=== PATIENT | female | born 1945 | race Caucasian/White ===

== ENCOUNTER 2021-02-18 14:26 | Inpatient (IN) ==
[2021-02-18] MEDS ORDERED: ALBUT/IPRATROP 3MG/0.5MG NEB 3 ML VIAL NEB STA ×2 (15:00→17:26)
[2021-02-18] MEDS ORDERED: dexAMETHasone**PF** 10 MG/ML VIAL IV ONE (15:00)
--- NOTE | 2021-02-18 15:13 | Emergency Department Note ---
History of Present Illness General Chief complaint: Shortness of Breath/Dyspnea Stated complaint: COUGHING,SOB,COVID POSITIVE 11 DAYS AGO Time Seen by Provider: 02/18/21 14:47 Source: patient Mode of arrival: ambulatory Limitations: no limitations History of Present Illness Provider complaint: Covid positive, not feeling better Onset (ago): week(s) 2 Severity: mild Relieved By: + none Exacerbated By: + movement Associated symptoms: + cough, + fever/chills, + headaches, + loss of appetite, + malaise, + shortness of breath and + weakness; no nausea/vomiting Treatments prior to arrival: none This is a 75-year-old female presents emergency department complaining of pos itive coronavirus and worsening symptoms. Patient states she first tested positive for COVID 11 days ago, however felt some symptoms evolving prior to this. Patient states her had been feeling ill several days prior to her and also tested positive. Patient does have a history of underlying COPD, does not wear home oxygen. She also has a history of underlying rheumatoid arthritis and is on 5 mg of prednisone daily. Patient states she has had various symptoms throughout her course of illness including headaches, fevers and chills, muscle aches, nausea, rhinorrhea, nasal congestion, sore throat, and cough. She states her cough is productive of green sputum, denies any hemoptysis. She states she has not felt overtly short of breath. Patient states she does not routinely check her pulse ox at home. She states she is prescribed breathing treatments but has not been using them. She denies any prior history of pneumonia. Denies any prior hospitalization for her COPD. Pt seen during a time of high acuity and national emergency pandemic while wearing PPE. Home Medications Medication Instructions Recorded Confirmed Type alprazolam 0.5 mg tablet 0.5 mg PO TID tab 12/30/18 02/18/21 History aspirin 81 mg tablet,delayed 81 mg PO DAILY tab 12/30/18 02/18/21 History release atorvastatin 40 mg tablet 40 mg PO DAILY #30 tab 12/30/18 02/18/21 History dexlansoprazole 60 mg 60 mg PO DAILY cap 12/30/18 02/18/21 History capsule,biphase delayed release gabapentin 300 mg capsule 300 mg PO TID cap 12/30/18 02/18/21 History metformin 500 mg tablet 500 mg PO DAILY #180 tab 12/30/18 02/18/21 History montelukast 10 mg tablet 10 mg PO DAILY #90 tab 12/30/18 02/18/21 History paroxetine HCl 40 mg tablet 40 mg PO DAILY tab 12/30/18 02/18/21 History prednisone 5 mg tablet 5 mg PO DAILY tab 12/30/18 02/18/21 History propranolol 10 mg tablet 10 mg PO TID tab 12/30/18 02/18/21 History budesonide 0.25 mg/2 mL suspension 2 ml INHALATION BID #60 ml 12/29/19 02/18/21 Rx for nebulization hydroxychloroquine 200 mg tablet 400 mg PO DAILY tab 12/29/19 02/18/21 History ipratropium 0.5 mg-albuterol 3 mg 3 ml INHALATION Q4H PRN #180 ml 12/29/19 02/18/21 Rx (2.5 mg base)/3 mL nebulization soln levothyroxine 25 mcg capsule 25 mcg PO DAILY 12/29/19 02/18/21 History budesonide-formoterol HFA 160 2 puff INHALATION BID #3 inhaler 02/16/20 02/18/21 Rx mcg-4.5 mcg/actuation aerosol inhaler umeclidinium 62.5 mcg/actuation 1 inh INHALATION DAILY #3 inhaler 11/18/20 02/18/21 Rx blister powder for inhalation (Incruse Ellipta) Allergies Allergy/AdvReac Type Severity Reaction Status Date / Time amoxicillin Allergy Unknown Verified 12/20/20 14:14 acetaminophen AdvReac Unknown "I AVOID Verified 12/20/20 14:14 THIS BECAUSE OF MY LIVER COUNTS" clarithromycin [From Biaxin] AdvReac Unknown Verified 12/20/20 14:14 Past Med/Surg History Social History Smoking Status: Never smoker Preferred Language: Yemeni Feels Safe at Home: Yes Review of Systems A total of 10 systems reviewed and were otherwise negative All systems reviewed & are unremarkable except as noted in HPI & below Physical Exam Vital Signs Vital Signs - 24 hr 02/18/21 14:27 02/18/21 14:32 02/18/21 15:54 Temperature 36.8 C Temperature Source Oral Pulse Rate 69 Pulse Rate [Right Finger] 56 L Pulse Rate from SpO2 Sensor Respiratory Rate 22 20 Respiratory Effort / Characteristics Non-Labored Non-Labored Spontaneous Respiratory Depth Normal Respiratory Pattern Regular Blood Pressure 96/54 L Blood Pressure Mean 68 Pulse Oximetry 92 87 L 93 Oxygen Delivery Method Nasal Cannula Room Air Nasal Cannula Oxygen Flow Rate 3 2 Sepsis Recent Fever Within 48 Hours No Sepsis New/Unexplained Change in Mental Status No Sepsis Action Taken by Nursing No Action Required 02/18/21 17:39 02/18/21 18:00 02/18/21 18:23 Temperature Temperature Source Pulse Rate 60 Pulse Rate [Right Finger] 54 L Pulse Rate from SpO2 Sensor 60 Respiratory Rate 18 22 Respiratory Effort / Characteristics Non-Labored Spontaneous Respiratory Depth Respiratory Pattern Blood Pressure 145/65 H Blood Pressure Mean 91 Pulse Oximetry 90 89 L 92 Oxygen Delivery Method Nasal Cannula Nasal Cannula Nasal Cannula Oxygen Flow Rate 3 2 5 Sepsis Recent Fever Within 48 Hours Sepsis New/Unexplained Change in Mental Status Sepsis Action Taken by Nursing GENERAL: alert, well appearing, well nourished, no distress, non-toxic EYE EXAM: normal conjunctiva, PERRL and EOM's grossly intact OROPHARYNX: no exudate, no erythema, lips, buccal mucosa, and tongue normal and mucous membranes are moist NECK: supple, no nuchal rigidity, no adenopathy, non-tender LUNGS: Clear to auscultation. Normal chest wall mechanics, no w/r/r, patient was hypoxic on room air at 87% HEART: no murmurs, S1 normal and S2 normal ABDOMEN: abdomen soft, non-tender, normo-active bowel sounds, no masses, no rebound or guarding. BACK: Back is symmetrical on inspection and there is no deformity, no midline tenderness, no CVA tenderness. SKIN: no rashes and no bruising UPPER EXTREMITIES: upper extremities are grossly normal. FROM, nml pulses b/l. LOWER EXTREMITIES: No pitting edema. FROM, nml pulses b/l. NEURO EXAM: Normal sensorium, cranial nerves II-XII grossly intact, normal speech, no gross weakness of arms, no gross weakness of legs. Gross sensation intact. Course Course 1701: Patient states she is feeling slightly improved. While on 2 to 3 L via nasal cannula when patient falls asleep her oxygen saturation still dropped into the upper 80s. 1844: Pt now on increased oxygen @ 3-4. 1909: Discussed with Dr. Ruff. 1916: Nursing staff reports that patient now requiring 5 L/min to hold on the low 90s, will increase and will contact RT. 2034: Patient placed on high flow nasal cannula with improvement in oxygenation. Administered Medications Discontinued Medications Albuterol (Albut/Ipratrop 3mg/0.5mg Neb 3 Ml Vial) 3 ml NEB NOW STA Stop: 02/18/21 15:01 Last Admin: 02/18/21 15:53 Dose: 3 ml Documented by: [id number] Albuterol (Albut/Ipratrop 3mg/0.5mg Neb 3 Ml Vial) 3 ml NEB NOW STA Stop: 02/18/21 17:27 Last Admin: 02/18/21 17:39 Dose: 3 ml Documented by: [id number] Dexamethasone Sodium Phosphate (DexamethasonePf 10 Mg/Ml Vial) 6 mg IV NOW ONE Stop: 02/18/21 15:01 Last Admin: 02/18/21 16:36 Dose: 6 mg Documented by: [id number] Sodium Chloride (Nss 1000ml) 1,000 mls @ 250 mls/hr IV .Q4H ARLENE Stop: 03/20/21 14:59 Last Admin: 02/18/21 16:36 Dose: 250 mls/hr Documented by: [id number] Sodium Chloride (Nss 1000ml) 500 mls @ 999 mls/hr IV .Q31M ONE Stop: 02/18/21 17:56 Last Admin: 02/18/21 17:58 Dose: 999 mls/hr Documented by: [id number] Doxycycline Hyclate 100 mg/ (Dextrose) 110 mls @ 50 mls/hr IV NOW STA Stop: 02/18/21 22:42 Last Admin: 02/18/21 21:17 Dose: 50 mls/hr Documented by: [id number] Critical Care Time Critical Care Time: Yes Total Critical Care Time: 39 Critical care of 39 min performed to assess and manage high likelihood of life- threatening hypoxic respiratory failure, involving labs and imaging performed with assessment to evaluate hypoxic respiratory failure diagnosis with frequent reassessment. This time includes bedside time, treatment discussions with patient/family/consultants, documentation time and excludes procedure time. Medical Decision Making Differential Diagnosis Differential Diagnosis includes but is not limited to dehydration, stroke, anemia, hypoglycemia, hyponatremia, hypernatremia, urinary tract infection, pneumonia, bronchitis, sepsis, gastroenteritis, additional abdominal pathology, metabolic abnormalities and infections. Medical Records Attestation: I reviewed the patient's medical records. Home Medications Current Medication List: was personally reviewed by me Laboratory Data Attestation: I reviewed the patient's lab results. Result diagrams: 02/18/21 16:09 02/18/21 16:09 Lab Results 02/18/21 02/18/21 02/18/21 Range/Units 16:09 16:09 16:09 WBC 10.17 (4.8-10.8) K/uL RBC 3.85 L (4.2-5.4) M/uL Hgb 11.9 L (12.0-16.0) g/dL Hct 34.4 L (37-47) % MCV 89.4 (80-100) fL MCH 30.9 (25-34) pg MCHC 34.6 (32-36) g/dL RDW Std Deviation 44.9 (36.4-46.3) fL RDW Coeff of [place]ton 13.6 (11.5-14.5) % Plt Count 237 (130-400) K/uL MPV 10.2 (7.4-10.4) fL Immature Gran % (Auto) 0.6 % Neut % (Auto) 83.6 % Lymph % (Auto) 6.1 % [place] % (Auto) 9.7 % Eos % (Auto) 0.0 % Baso % (Auto) 0.0 % Neut # (Auto) 8.50 H (1.4-6.5) K/uL Lymph # (Auto) 0.62 L (1.2-3.4) K/uL [place] # (Auto) 0.99 H (0.11-0.59) K/uL Eos # (Auto) 0.00 (0-0.5) K/uL Baso # (Auto) 0.00 (0-0.2) K/uL Immature Gran # (Auto) 0.06 H (0.00-0.02) K/uL Sodium 132 L (136-145) mmol/L Potassium 4.5 (3.5-5.1) mmol/L Chloride 100 (98-107) mmol/L Carbon Dioxide 23 (21-32) mmol/L Anion Gap 8.0 (3-11) BUN 21 H (7-18) mg/dl Creatinine 1.02 (0.6-1.2) mg/dl Est Cr Clr Drug Dosing 47.0 ml/min Est GFR ( Amer) 62.3 ml/min Est GFR (Non-Af Amer) 53.8 ml/min BUN/Creatinine Ratio 20.7 H (10-20) Glucose 161 H (70-99) mg/dl Calcium 9.3 (8.5-10.1) mg/dl Magnesium 2.1 (1.8-2.4) mg/dl Total Bilirubin 0.7 (0.2-1) mg/dl AST 37 (15-37) U/L ALT 43 (12-78) U/L Alkaline Phosphatase 68 (45-117) U/L Troponin I < 0.015 (0-0.045) ng/ml NT-Pro-B Natriuret Pep 149 (0-900) pg/ml Total Protein 7.0 (6.4-8.2) gm/dl Albumin 3.0 L (3.4-5.0) gm/dl Globulin 4.0 (2.5-4.0) gm/dl Albumin/Globulin Ratio 0.8 L (0.9-2) TSH 0.328 (0.300-4.500) uIu/ml COVID-19 Eval Order SARS-CoV-2 (PCR) (Negative) 02/18/21 02/18/21 Range/Units 18:55 18:55 WBC (4.8-10.8) K/uL RBC (4.2-5.4) M/uL Hgb (12.0-16.0) g/dL Hct (37-47) % MCV (80-100) fL MCH (25-34) pg MCHC (32-36) g/dL RDW Std Deviation (36.4-46.3) fL RDW Coeff of [place] (11.5-14.5) % Plt Count (130-400) K/uL MPV (7.4-10.4) fL Immature Gran % (Auto) % Neut % (Auto) % Lymph % (Auto) % [place] % (Auto) % Eos % (Auto) % Baso % (Auto) % Neut # (Auto) (1.4-6.5) K/uL Lymph # (Auto) (1.2-3.4) K/uL [place] # (Auto) (0.11-0.59) K/uL Eos # (Auto) (0-0.5) K/uL Baso # (Auto) (0-0.2) K/uL Immature Gran # (Auto) (0.00-0.02) K/uL Sodium (136-145) mmol/L Potassium (3.5-5.1) mmol/L Chloride (98-107) mmol/L Carbon Dioxide (21-32) mmol/L Anion Gap (3-11) BUN (7-18) mg/dl Creatinine (0.6-1.2) mg/dl Est Cr Clr Drug Dosing ml/min Est GFR ( Amer) ml/min Est GFR (Non-Af Amer) ml/min BUN/Creatinine Ratio (10-20) Glucose (70-99) mg/dl Calcium (8.5-10.1) mg/dl Magnesium (1.8-2.4) mg/dl Total Bilirubin (0.2-1) mg/dl AST (15-37) U/L ALT (12-78) U/L Alkaline Phosphatase (45-117) U/L Troponin I (0-0.045) ng/ml NT-Pro-B Natriuret Pep (0-900) pg/ml Total Protein (6.4-8.2) gm/dl Albumin (3.4-5.0) gm/dl Globulin (2.5-4.0) gm/dl Albumin/Globulin Ratio (0.9-2) TSH (0.300-4.500) uIu/ml COVID-19 Eval Order Covid19 at [facility] SARS-CoV-2 (PCR) POSITIVE A* (Negative) Imaging Data Radiologist's Impression: Chest X-Ray 02/18/21 15:01 XR chest 1V portable INDICATION: MN ^sob, cough . TECHNIQUE: Single frontal radiograph of the chest was obtained. Comparison: Comparison is made to chest 2 views 02/08/2014 FINDINGS: No lines and tubes are seen. The cardiomediastinal silhouette is normal. Lungs are underinflated. Focal atelectasis is seen in the left lung base and right upper lobe. No evidence of pleural effusion or pneumothorax. Patient is status post right reverse shoulder arthroplasty. IMPRESSION: Lungs are underinflated with foci of atelectasis. No evidence of airspace disease. ACT 112: Negative or not required by law. Electronically signed by: William Steen M.D. 02/18/2021 4:33 PM MDM Narrative This is a 75-year-old female with a history of COPD and rheumatoid arthritis on chronic prednisone with a recent positive coronavirus test and symptoms as an outpatient over the last 11 days. Patient felt she was worsening and presented to the emergency room. Patient was found to be hypoxic and was initially placed on nasal cannula at 2 L with improvement of symptoms. Patient's labs reassuring, chest x-ray without significant findings, however as patient was here she continued to slowly require additional amounts of oxygen via nasal cannula. Eventually patient was transitioned to high flow nasal cannula. Patient otherwise hemodynamically stable and afebrile. Discussed with patient oxygen requirements and need for additional inpatient management at this time, she verbalized understanding was in agreement. Patient was given 2 nebulizer treatments here and started on dexamethasone in addition. An order was placed for continuous cardiac monitoring. The monitor shows a rate of _56_ with _sinus bradycardia__ rhythm. Impression & Plan Respiratory failure with hypoxia, COPD (chronic obstructive pulmonary disease), COVID-19 Discharge Plan Visit Data Chief Complaint: Shortness of Breath/Dyspnea Stated Complaint: COUGHING,SOB,COVID POSITIVE 11 DAYS AGO ED Provider: Caitlin Angeles Discharge Problem: Respiratory failure with hypoxia, COPD (chronic obstructive pulmonary disease), COVID-19 Discharge Problem: Respiratory failure with hypoxia Qualifiers: Chronicity: acute Qualified Code(s): J96.01 - Acute respiratory failure with hypoxia COPD (chronic obstructive pulmonary disease) Qualifiers: COPD type: unspecified COPD Qualified Code(s): J44.9 - Chronic obstructive pulmonary disease, unspecified
[2021-02-18 16:17] LABS: Hematocrit (blood only) 34.4 % (37-47); Hemoglobin 11.9 g/dL (12.0-16.0); Immature Granulocytes # (auto) 0.06 K/uL (0.00-0.02); Immature Granulocytes % (auto) 0.6 %; Lymphocytes # (auto) 0.62 K/uL (1.2-3.4); Lymphocytes % (auto) 6.1 %; Mean Corpuscular Hemoglobin 30.9 pg (25-34); Mean Corpuscular Hgb Conc 34.6 g/dL (32-36); Mean Corpuscular Volume 89.4 fL (80-100); Mean Platelet Volume 10.2 fL (7.4-10.4); Monocytes # (auto) 0.99 K/uL (0.11-0.59); Monocytes % (auto) 9.7 %; Neutrophils % (auto) 83.6 %; Platelet Count 237 K/uL (130-400); RDW Coefficient of Variation 13.6 % (11.5-14.5); RDW Standard Deviation 44.9 fL (36.4-46.3); Red Blood Count 3.85 M/uL (4.2-5.4); White Blood Count 10.17 K/uL (4.8-10.8)
--- NOTE | 2021-02-18 16:34 | XRay Report ---
XR chest 1V portable INDICATION: MN ^sob, cough . TECHNIQUE: Single frontal radiograph of the chest was obtained. Comparison: Comparison is made to chest 2 views 02/08/2014 FINDINGS: No lines and tubes are seen. The cardiomediastinal silhouette is normal. Lungs are underinflated. Foc al atelectasis is seen in the left lung base and right upper lobe. No evidence of pleural effusion or pneumothorax. Patient is status post right reverse shoulder arthroplasty. IMPRESSION: Lungs are underinflated with foci of atelectasis. No evidence of airspace disease. ACT 112: Negative or not required by law. Electronically signed by: William Steen M.D. 02/18/2021 4:33 PM
[2021-02-18] MEDS: SODIUM CHLORIDE 0.9% 1000ML 1,000 ML IV SCH (16:36)
[2021-02-18 16:37] LABS: Alanine Aminotransferase 43 U/L (12-78); Aspartate Aminotransferase 37 U/L (15-37); BUN Creatinine Ratio 20.7 (10-20); Blood Urea Nitrogen 21 mg/dl (7-18); Calcium 9.3 mg/dl (8.5-10.1); Carbon Dioxide 23 mmol/L (21-32); Chloride 100 mmol/L (98-107); Est GFR (African American) 62.3 ml/min; Est GFR (Non-African American) 53.8 ml/min; Glucose 161 mg/dl (70-99); Magnesium 2.1 mg/dl (1.8-2.4); Potassium 4.5 mmol/L (3.5-5.1); Sodium 132 mmol/L (136-145)
[2021-02-18 16:42] LABS: Albumin Globulin Ratio 0.8 (0.9-2); Alkaline Phosphatase 68 U/L (45-117); Bilirubin,Total 0.7 mg/dl (0.2-1); NT Pro B Type Natriuretic Pept 149 pg/ml (0-900); Troponin I < 0.015 ng/ml (0-0.045)
[2021-02-18] MEDS ORDERED: SODIUM CHLORIDE 0.9% 1000ML 500 ML IV ONE (17:26)
[2021-02-18] MEDS ORDERED: DOXYCYCLINE HYCLATE 100 MG in DEXTROSE 5% 100 ML IV STA (20:31)
--- NOTE | 2021-02-18 20:31 | History & Physical Report ---
Date of Service February 18, 2021 Assessment & Plan (1) Respiratory failure with hypoxia: Plan: Secondary to severe COVID-19 pneumonia Complicated bronchitis hx COPD/asthma rheumatoid arthritis on chronic steroid therapy HTN, slightly elevated hyperlipidemia, on statin Rx DM2 on oral medications, well-controlled as of recent hemoglobin A1c of 6.23 July 2020 hypothyroidism, euthyroid as of today's TSH essential tremors on propranolol past tobacco abuse. Medical telemetry Supplemental O2 Baseline ABG Decadron and Remdesivir for severe COVID-19 pneumonia. (Patient refusing remdesivir for now.) Doxycycline for complicated bronchitis. Pulmonary consult if without improvement. Basal insulin, ISS BG goal 1 10-1 40, carb count coverage, update hemoglobin A1c DVT prophylaxis per Lovenox subcu Full code Patient requests for her to be updated of of her progress. Mr. Karan Corona, contact #[phone]. Text document was generated using Pfenex voice recognition software. It may contain grammatical or spelling errors. Kindly contact undersigned for clarification of any documentation item in question. History of Present Illness Chief Complaint: Cough, shortness of breath, Covid positive Primary Care Provider: Darian Thomas MD History obtained from patient and records. Medical history significant for COPD/asthma, rheumatoid arthritis on chronic steroid therapy, HTN, hyperlipidemia, DM2 on oral medications, hypothyroidism, essential tremors, anxiety/mood disorder, fibromyalgia, acoustic neuroma status post surgery, past tobacco abuse. Last confinement February 2014 under Orthopedics service for elective left shoulder surgery. 12 days ago, patient noted flulike illness followed by cough productive of green sputum with worsening shortness of breath. No chest pain. No unusual wheezing at home as per patient. Sick COVID-19 contacts at home. Outpatient Covid 19 test from last week was positive. Patient completed COVID-19 vaccination. Patient brought to the ER for evaluation. O2 sats 80s on room air. Decadron and neb treatment given at the ER. Medical History as above Surgical History : Carpal tunnel surgery, shoulder surgery, acoustic neuroma removal, BTL, appendectomy, sinus surgery, tonsillectomy/adenoidectomy, TAHBSO Family History : DM, stroke, COPD, melanoma, rheumatoid arthritis Personal/Social history : Past tobacco abuse, no EtOH intake, lives with Allergies Allergy/AdvReac Type Severity Reaction Status Date / Time amoxicillin Allergy Unknown Verified 12/20/20 14:14 acetaminophen AdvReac Unknown "I AVOID Verified 12/20/20 14:14 THIS BECAUSE OF MY LIVER COUNTS" clarithromycin [From Biaxin] AdvReac Unknown Verified 12/20/20 14:14 Home Medications Medication Instructions Recorded Confirmed Type alprazolam 0.5 mg tablet 0.5 mg PO TID tab 12/30/18 02/18/21 History aspirin 81 mg tablet,delayed 81 mg PO DAILY tab 12/30/18 02/18/21 History release atorvastatin 40 mg tablet 40 mg PO DAILY #30 tab 12/30/18 02/18/21 History dexlansoprazole 60 mg 60 mg PO DAILY cap 12/30/18 02/18/21 History capsule,biphase delayed release gabapentin 300 mg capsule 300 mg PO TID cap 12/30/18 02/18/21 History metformin 500 mg tablet 500 mg PO DAILY #180 tab 12/30/18 02/18/21 History montelukast 10 mg tablet 10 mg PO DAILY #90 tab 12/30/18 02/18/21 History paroxetine HCl 40 mg tablet 40 mg PO DAILY tab 12/30/18 02/18/21 History prednisone 5 mg tablet 5 mg PO DAILY tab 12/30/18 02/18/21 History propranolol 10 mg tablet 10 mg PO TID tab 12/30/18 02/18/21 History budesonide 0.25 mg/2 mL suspension 2 ml INHALATION BID #60 ml 12/29/19 02/18/21 Rx for nebulization hydroxychloroquine 200 mg tablet 400 mg PO DAILY tab 12/29/19 02/18/21 History ipratropium 0.5 mg-albuterol 3 mg 3 ml INHALATION Q4H PRN #180 ml 12/29/19 02/18/21 Rx (2.5 mg base)/3 mL nebulization soln levothyroxine 25 mcg capsule 25 mcg PO DAILY 12/29/19 02/18/21 History budesonide-formoterol HFA 160 2 puff INHALATION BID #3 inhaler 02/16/20 02/18/21 Rx mcg-4.5 mcg/actuation aerosol inhaler umeclidinium 62.5 mcg/actuation 1 inh INHALATION DAILY #3 inhaler 11/18/20 02/18/21 Rx blister powder for inhalation (Incruse Ellipta) Past Med/Surg History Social History Smoking Status: Never smoker Preferred Language: Cymro Feels Safe at Home: Yes Review of Systems Review of Systems: As per HPI, all 10 systems reviewed, all other ROS negative Physical Exam Physical Exam: GENERAL: Comfortable, head tremors (chronic), no respiratory distress SKIN: Normal color, warm HEENT: [place] palpebral conjunctivae, no ptosis, dry buccal mucosa, nasal cannula in place NECK : Supple, no tenderness CHEST : Decreased breath sounds, no tenderness HEART : Bradycardic, no obvious murmurs ABDOMEN: Some distention, nontender EXTREMITIES : No LE swelling/tenderness, no other conspicuous deformities noted NEUROLOGIC : Coherent, no facial asymmetry, chronic head tremors, no other gross focality Results & Data Results & Data ([facility]) Vital Signs (Past 12 Hours) Vital Signs Temp Pulse Pulse Resp BP Pulse Ox 02/18/21 18:23 92 02/18/21 18:00 60 22 145/65 H 89 L 02/18/21 17:39 54 L 18 90 02/18/21 15:54 56 L 20 93 02/18/21 14:32 36.8 C 69 22 96/54 L 87 L 02/18/21 14:27 92 Laboratory Results Laboratory Results WBC 10.17 K/uL (4.8-10.8) 02/18/21 16:09 RBC 3.85 M/uL (4.2-5.4) L 02/18/21 16:09 Hgb 11.9 g/dL (12.0-16.0) L 02/18/21 16:09 Hct 34.4 % (37-47) L 02/18/21 16:09 MCV 89.4 fL (80-100) 02/18/21 16:09 MCH 30.9 pg (25-34) 02/18/21 16:09 MCHC 34.6 g/dL (32-36) 02/18/21 16:09 RDW Std Deviation 44.9 fL (36.4-46.3) 02/18/21 16:09 RDW Coeff of Colton 13.6 % (11.5-14.5) 02/18/21 16:09 Plt Count 237 K/uL (130-400) 02/18/21 16:09 MPV 10.2 fL (7.4-10.4) 02/18/21 16:09 Immature Gran % (Auto) 0.6 % 02/18/21 16:09 Neut % (Auto) 83.6 % 02/18/21 16:09 Lymph % (Auto) 6.1 % 02/18/21 16:09 [place] % (Auto) 9.7 % 02/18/21 16:09 Eos % (Auto) 0.0 % 02/18/21 16:09 Baso % (Auto) 0.0 % 02/18/21 16:09 Neut # (Auto) 8.50 K/uL (1.4-6.5) H 02/18/21 16:09 Lymph # (Auto) 0.62 K/uL (1.2-3.4) L 02/18/21 16:09 [place] # (Auto) 0.99 K/uL (0.11-0.59) H 02/18/21 16:09 Eos # (Auto) 0.00 K/uL (0-0.5) 02/18/21 16:09 Baso # (Auto) 0.00 K/uL (0-0.2) 02/18/21 16:09 Immature Gran # (Auto) 0.06 K/uL (0.00-0.02) H 02/18/21 16:09 Sodium 132 mmol/L (136-145) L 02/18/21 16:09 Potassium 4.5 mmol/L (3.5-5.1) 02/18/21 16:09 Chloride 100 mmol/L (98-107) 02/18/21 16:09 Carbon Dioxide 23 mmol/L (21-32) 02/18/21 16:09 Anion Gap 8.0 (3-11) 02/18/21 16:09 BUN 21 mg/dl (7-18) H 02/18/21 16:09 Creatinine 1.02 mg/dl (0.6-1.2) 02/18/21 16:09 Est Cr Clr Drug Dosing 47.0 ml/min 02/18/21 16:09 Est GFR ( Amer) 62.3 ml/min 02/18/21 16:09 Est GFR (Non-Af Amer) 53.8 ml/min 02/18/21 16:09 BUN/Creatinine Ratio 20.7 (10-20) H 02/18/21 16:09 Glucose 161 mg/dl (70-99) H 02/18/21 16:09 Calcium 9.3 mg/dl (8.5-10.1) 02/18/21 16:09 Magnesium 2.1 mg/dl (1.8-2.4) 02/18/21 16:09 Total Bilirubin 0.7 mg/dl (0.2-1) 02/18/21 16:09 AST 37 U/L (15-37) 02/18/21 16:09 ALT 43 U/L (12-78) 02/18/21 16:09 Alkaline Phosphatase 68 U/L (45-117) 02/18/21 16:09 Troponin I < 0.015 ng/ml (0-0.045) 02/18/21 16:09 NT-Pro-B Natriuret Pep 149 pg/ml (0-900) 02/18/21 16:09 Total Protein 7.0 gm/dl (6.4-8.2) 02/18/21 16:09 Albumin 3.0 gm/dl (3.4-5.0) L 02/18/21 16:09 Globulin 4.0 gm/dl (2.5-4.0) 02/18/21 16:09 Albumin/Globulin Ratio 0.8 (0.9-2) L 02/18/21 16:09 TSH 0.328 uIu/ml (0.300-4.500) 02/18/21 16:09 COVID-19 Eval Order Covid19 at [facility] 02/18/21 18:55 SARS-CoV-2 (PCR) POSITIVE (Negative) A* 02/18/21 18:55 Impressions Chest X-Ray 02/18/21 15:01 XR chest 1V portable INDICATION: MN ^sob, cough . TECHNIQUE: Single frontal radiograph of the chest was obtained. Comparison: Comparison is made to chest 2 views 02/08/2014 FINDINGS: No lines and tubes are seen. The cardiomediastinal silhouette is normal. Lungs are underinflated. Focal atelectasis is seen in the left lung base and right upper lobe. No evidence of pleural effusion or pneumothorax. Patient is status post right reverse shoulder arthroplasty. IMPRESSION: Lungs are underinflated with foci of atelectasis. No evidence of airspace disease. ACT 112: Negative or not required by law. Electronically signed by: William Steen M.D. 02/18/2021 4:33 PM Diagnostic Findings EKG as per my interpretation: Rate 55, sinus bradycardia, LAD, LAFB, LVH, diffuse T wave abnormalities (1) Respiratory failure with hypoxia Chronicity: acute Qualified Code(s): J96.01 - Acute respiratory failure with hypoxia
[2021-02-18] MEDS ORDERED: REMDESIVIR 200 MG in SODIUM CHLORIDE 0.9% 210 ML IV STA (20:40)
[2021-02-18 21:16] LABS: Base Excess ABG -1.5 mEq/L (-9-1.8); HCO3 ABG 22 mmol/L (19-24); Oxygen Saturation ABG 89.6 % (90-95); PCO2 ABG 32 mmHg (35-46); PO2 ABG 57 mmHg (80-95); Partial Thromboplastin Ratio 0.8; Partial Thromboplastin Time 21.9 Seconds (21.0-31.0); pH ABG 7.45 (7.35-7.45)
[2021-02-18 21:23] LABS: Allen Test Pos (Pos)
[2021-02-18] MEDS ORDERED: DEXTROSE 50% 50 ML SYRINGE IV PRN (22:58)
[2021-02-18] MEDS ORDERED: GLUCAGON FOR INJ 1 MG VIAL SQ PRN (22:58)
[2021-02-18] MEDS ORDERED: GLUCOSE 40% GEL 15 GM TUBE PO PRN (22:58)
[2021-02-18] MEDS ORDERED: ALBUT/IPRATROP 3MG/0.5MG NEB 3 ML VIAL NEB PRN (22:58)
[2021-02-18] MEDS ORDERED: SODIUM CHLORIDE 0.9% 10ML FLUSH IV SCH (22:58)
[2021-02-18] MEDS ORDERED: GLUCOSE 10 TABS/TUBE PO PRN (22:58)
[2021-02-18] MEDS ORDERED: PROMETHAZINE HCL 12.5 MG in SODIUM CHLORIDE 0.9% 50 ML IV PRN (22:58)
[2021-02-19] MEDS: ALPRAZolam 0.5 MG TABLET PO SCH ×4 (00:31→21:48)
[2021-02-19] MEDS: GABAPENTIN 300 MG CAP PO SCH ×4 (00:31→21:49)
[2021-02-19] MEDS: PROPRANOLOL HCL 10 MG TAB PO SCH ×4 (00:31→21:50)
[2021-02-19] MEDS: SODIUM CHLORIDE 0.9% 1000ML 1,000 ML IV SCH (00:40)
[2021-02-19] MEDS: INSULIN ASPART 100 UNITS/ML 3 ML PEN SC SCH ×5 (00:41→21:20)
[2021-02-19] MEDS: INSULIN GLARGINE SOLOSTAR 100 UNITS/ML 3 ML PEN SC SCH ×3 (00:41→21:20)
[2021-02-19] MEDS: LEVOTHYROXINE SODIUM 25 MCG TABLET PO SCH (06:31)
[2021-02-19] MEDS ORDERED: BUDESONIDE 0.25 MG/2 ML VIAL (PULMICORT) INH SCH ×2 (07:00→09:00)
[2021-02-19 08:23] LABS: Basophils # (auto) 0.01 K/uL (0-0.2); Basophils % (auto) 0.1 %; Hematocrit (blood only) 33.6 % (37-47); Hemoglobin 11.4 g/dL (12.0-16.0); Immature Granulocytes # (auto) 0.06 K/uL (0.00-0.02); Immature Granulocytes % (auto) 0.6 %; Lymphocytes # (auto) 0.55 K/uL (1.2-3.4); Lymphocytes % (auto) 5.4 %; Mean Corpuscular Hemoglobin 30.4 pg (25-34); Mean Corpuscular Hgb Conc 33.9 g/dL (32-36); Mean Corpuscular Volume 89.6 fL (80-100); Mean Platelet Volume 10.1 fL (7.4-10.4); Monocytes % (auto) 13.8 %; Neutrophils # (auto) 8.14 K/uL (1.4-6.5); Neutrophils % (auto) 80.1 %; Platelet Count 245 K/uL (130-400); RDW Coefficient of Variation 13.5 % (11.5-14.5); RDW Standard Deviation 44.7 fL (36.4-46.3); Red Blood Count 3.75 M/uL (4.2-5.4); White Blood Count 10.16 K/uL (4.8-10.8)
[2021-02-19 08:50] LABS: Albumin Level 2.6 gm/dl (3.4-5.0); BUN Creatinine Ratio 25.8 (10-20); Calcium 8.7 mg/dl (8.5-10.1); Est GFR (African American) 88.9 ml/min; Est GFR (Non-African American) 76.7 ml/min
[2021-02-19 08:54] LABS: Bilirubin Direct 0.1 mg/dl (0-0.2); Bilirubin,Total 0.7 mg/dl (0.2-1); Total Protein 6.2 gm/dl (6.4-8.2)
[2021-02-19] MEDS: dexAMETHasone 6 MG in SYRINGE 0 ML IV SCH (09:41)
[2021-02-19] MEDS: ATORVASTATIN 40 MG TAB PO SCH (09:41)
[2021-02-19] MEDS: ASPIRIN 81 MG ECTAB PO SCH (09:41)
[2021-02-19] MEDS: DOXYCYCLINE HYCLATE 100 MG CAP PO SCH ×2 (09:42→21:50)
[2021-02-19] MEDS: ENOXAPARIN INJ 40 MG/0.4 ML SYR SQ SCH (09:43)
[2021-02-19] MEDS: FLUTICASONE/VILANTEROL 100/25MCG 14 PUFFS/INHALER INH SCH (09:44)
[2021-02-19] MEDS: UMECLIDINIUM BROMIDE 62.5MCG/BLISTER 7 PUFFS/INHALER INH SCH (09:44)
[2021-02-19] MEDS: HYDROXYCHLOROQUINE SULFATE 200 MG TAB PO SCH (09:45)
[2021-02-19] MEDS: MONTELUKAST SODIUM 10 MG TABLET PO SCH (09:45)
[2021-02-19] MEDS: PANTOprazole 40 MG TAB PO SCH (09:46)
[2021-02-19] MEDS: BENZONATATE 100 MG CAPSULE PO SCH ×2 (15:05→21:49)
--- NOTE | 2021-02-19 15:35 | Hospitalist Progress Note ---
Date of Service February 19, 2021 Assessment & Plan (1) Respiratory failure with hypoxia: Plan: Secondary to severe COVID-19 pneumonia Chest x-ray is not showing any typical viral pneumonic picture Requiring high flow oxygen mask to maintain saturation Received Decadron but refused remdesivir Cough medicines as needed We will monitor inflammatory markers History of COPD/asthma Complicated bronchitis with cough and upper nonproductive sputum Has been on doxycycline We will continue current nebulized bronchodilator Rheumatoid arthritis on chronic steroid therapy May complicate current Covid 19 infection HTN, slightly elevated We will continue her usual medication Hyperlipidemia, on statin Rx DM2 on oral medications, well-controlled as of recent hemoglobin A1c of 6.23 July 2020 Basal insulin, ISS BG goal 1 10-1 40, carb count coverage, update hemoglobin A1c Hypothyroidism, euthyroid as of today's TSH Essential tremors on propranolol past tobacco abuse. DVT prophylaxis per Lovenox subcu Full code Patient requests for her to be updated of of her progress. Mr. Karan Corona, contact #[phone]. Admission and Anticipated Discharge Date Admission Date: February 18, 2021 Subjective 02/19/2021 The patient was seen and examined in medical telemetry unit and in the Covid room She has been complaining of cough without any phlegm Still requiring 15 L of oxygen via oxygen mask to maintain saturation Denies any chest pain, palpitation, fever or chills Review of Systems Review of Systems: All systems reviewed and are unremarkable except as noted below Respiratory: + cough and + dyspnea Physical Exam Physical Exam: Lying in bed with moderate shortness of breath Constitutional: + ill appearing and average body habitus Eyes: PERRL, conjunctivae normal, anicteric sclerae ENMT: external ear and nose normal, oropharynx normal Neck: trachea midline, no thyromegaly Respiratory: + respiratory distress and + cough Auscultation: + diminished lung sounds and + crackles (At the bases) Cardiovascular: Rate/Rhythm: regular rate and regular rhythm; not tachycardic Heart Sounds: normal S1 and normal S2; no murmur Extremities: no edema Gastrointestinal (Abdomen): Inspection/Auscultation: normal bowel sounds; abdomen not distended Percussion/Palpation: abdomen soft; abdomen nontender Musculoskeletal: No acute arthritis in any joint Neurologic: Alert, awake and oriented x3 Results & Data Results & Data ([facility]) Vital Signs (Past 12 Hours) Vital Signs Temp Pulse Pulse Resp BP Pulse Ox 02/19/21 15:07 36.5 C 58 L 24 132/72 92 02/19/21 11:18 36.5 C 54 L 20 138/58 L 94 02/19/21 08:00 36.4 C L 89 20 146/74 H 91 02/19/21 07:52 95 H 20 93 02/19/21 07:42 44 L 02/19/21 04:00 36.4 C L 52 L 18 133/60 93 Laboratory Results Short CBC 02/18/21 02/19/21 Range/Units 16:09 08:02 WBC 10.17 10.16 (4.8-10.8) K/uL Hgb 11.9 L 11.4 L (12.0-16.0) g/dL Hct 34.4 L 33.6 L (37-47) % Plt Count 237 245 (130-400) K/uL BMP 02/18/21 02/19/21 16:09 08:02 Sodium 132 L 136 Potassium 4.5 4.0 Chloride 100 103 Carbon Dioxide 23 24 BUN 21 H 20 H Creatinine 1.02 0.76 Glucose 161 H 98 Calcium 9.3 8.7 Cardiac Enzymes 02/18/21 Range/Units 16:09 Troponin I < 0.015 (0-0.045) ng/ml Liver Function 02/18/21 02/19/21 Range/Units 16:09 08:02 Total Bilirubin 0.7 0.7 (0.2-1) mg/dl Direct Bilirubin 0.1 (0-0.2) mg/dl AST 37 24 (15-37) U/L ALT 43 35 (12-78) U/L Alkaline Phosphatase 68 60 (45-117) U/L Albumin 3.0 L 2.6 L (3.4-5.0) gm/dl Medications Administered Current Inpatient Medications Albuterol (Albut/Ipratrop 3mg/0.5mg Neb 3 Ml Vial) 3 ml NEB Q2H PRN PRN Reason: Wheezing Stop: 03/20/21 22:57 Alprazolam (Alprazolam 0.5 Mg Tablet) 0.5 mg PO TID [facility] Stop: 03/20/21 23:09 Last Admin: 02/19/21 15:05 Dose: 0.5 mg Documented by: Aspirin (Aspirin 81 Mg Ectab) 81 mg PO DAILY [facility] Stop: 03/21/21 08:59 Last Admin: 02/19/21 09:41 Dose: 81 mg Documented by: Atorvastatin Calcium (Atorvastatin 40 Mg Tab) 40 mg PO DAILY [facility] Stop: 03/21/21 08:59 Last Admin: 02/19/21 09:41 Dose: 40 mg Documented by: Benzonatate (Benzonatate 100 Mg Capsule) 100 mg PO TID [facility] Stop: 03/21/21 13:59 Last Admin: 02/19/21 15:05 Dose: 100 mg Documented by: Dextrose (Dextrose 50% 50 Ml Syringe) 25 - 50 ml IV UD PRN; Protocol PRN Reason: Hypoglycemia Protocol Stop: 03/20/21 22:57 Doxycycline Hyclate (Doxycycline Hyclate 100 Mg Cap) 100 mg PO BID [facility]; Protocol Stop: 02/26/21 08:59 Last Admin: 02/19/21 09:42 Dose: 100 mg Documented by: Enoxaparin Sodium (Enoxaparin Inj 40 Mg/0.4 Ml Syr) 40 mg SQ QAM [facility] Stop: 03/21/21 08:59 Last Admin: 02/19/21 09:43 Dose: 40 mg Documented by: Fluticasone/Vilanterol (Fluticasone/Vilanterol 100/25mcg 14 Puffs/Inhaler) 1 puffs INH DAILY [facility]; Protocol Stop: 03/21/21 08:59 Last Admin: 02/19/21 09:44 Dose: 1 puffs Documented by: Gabapentin (Gabapentin 300 Mg Cap) 300 mg PO TID [facility] Stop: 03/20/21 23:29 Last Admin: 02/19/21 15:06 Dose: 300 mg Documented by: Glucagon (Glucagon For Inj 1 Mg Vial) 1 mg SQ UD PRN; Protocol PRN Reason: Hypoglycemia Protocol Stop: 03/20/21 22:57 Glucose (Glucose 10 Tabs/Tube) 4 - 8 tabs PO UD PRN; Protocol PRN Reason: Hypoglycemia Protocol Stop: 03/20/21 22:57 Glucose (Glucose 40% Gel 15 Gm Tube) 15 - 30 gm PO UD PRN; Protocol PRN Reason: Hypoglycemia Protocol Stop: 03/20/21 22:57 Guaifenesin (Guaifenesin 600 Mg Tabcr) 1,200 mg PO Q12 [facility] Stop: 03/21/21 20:59 Hydroxychloroquine Sulfate (Hydroxychloroquine Sulfate 200 Mg Tab) 400 mg PO DAILY [facility] Stop: 03/21/21 08:59 Last Admin: 02/19/21 09:45 Dose: 400 mg Documented by: Dexamethasone 6 mg/ Syringe 1.5 mls @ 1 mls/min IV DAILY [facility] Stop: 03/21/21 08:59 Last Admin: 02/19/21 09:41 Dose: 1 mls/min Documented by: Promethazine HCl 12.5 mg/ (Sodium Chloride) 50.5 mls @ 202 mls/hr IV Q6H PRN PRN Reason: Nausea And Vomiting Stop: 03/20/21 22:57 Insulin Aspart (Insulin Aspart 100 Units/Ml 3 Ml Pen) 0 units SC ACHS [facility] Stop: 03/20/21 23:29 Last Admin: 02/19/21 12:37 Dose: 5 units Documented by: Insulin Glargine (Insulin Glargine Solostar 100 Units/Ml 3 Ml Pen) 5 units SC BID [facility] Stop: 03/20/21 23:29 Last Admin: 02/19/21 09:45 Dose: 5 units Documented by: Levothyroxine Sodium (Levothyroxine Sodium 25 Mcg Tablet) 25 mcg PO DAILYBB [facility] Stop: 03/21/21 06:29 Last Admin: 02/19/21 06:31 Dose: 25 mcg Documented by: Miscellaneous (Carbohydrates For Hypoglycemia ) 15 - 30 gm PO UD PRN PRN Reason: Hypoglycemia Protocol Stop: 03/20/21 22:57 Montelukast Sodium (Montelukast Sodium 10 Mg Tablet) 10 mg PO DAILY [facility] Stop: 03/21/21 08:59 Last Admin: 02/19/21 09:45 Dose: 10 mg Documented by: Pantoprazole Sodium (Pantoprazole 40 Mg Tab) 40 mg PO DAILY [facility]; Protocol Stop: 03/21/21 08:59 Last Admin: 02/19/21 09:46 Dose: 40 mg Documented by: Propranolol HCl (Propranolol Hcl 10 Mg Tab) 10 mg PO TID [facility] Stop: 03/20/21 23:29 Last Admin: 02/19/21 15:06 Dose: Not Given Documented by: Tramadol HCl (Tramadol Hcl 50 Mg Tablet) 25 mg PO Q4H PRN PRN Reason: Pain Stop: 03/20/21 22:57 Umeclidinium [place] (Umeclidinium [place] 62.5mcg/Blister 7 Puffs/Inhaler) 1 puffs INH DAILY [facility] Stop: 03/21/21 08:59 Last Admin: 02/19/21 09:44 Dose: 1 puffs Documented by: (1) Respiratory failure with hypoxia Chronicity: acute Qualified Code(s): J96.01 - Acute respiratory failure with hypoxia
[2021-02-19] MEDS: traMADol HCL 50 MG TABLET PO PRN (18:37)
--- NOTE | 2021-02-19 19:45 | Electrocardiogram Report ---
Test Reason : Blood Pressure : / mmHG Vent. Rate : 056 BPM Atrial Rate : 056 BPM P-R Int : 166 ms QRS Dur : 094 ms QT Int : 424 ms P-R-T Axes : 037 -15 030 degrees QTc Int : 409 ms Poor data quality, interpretation may be adversely affected Sinus bradycardia Minimal voltage criteria for LVH, may be normal variant Nonspecific ST and T wave abnormality Abnormal ECG When compared with ECG of 08-FEB-2014 09:52, Inverted T waves have replaced nonspecific T wave abnormality in Anterior leads QT has shortened Confirmed by Mike Bowie ([id number]) on 02/19/2021 7:44:26 PM Referred By: REFERRED SELF Confirmed By:Mike Bowie
[2021-02-19] MEDS ORDERED: REMDESIVIR 100 MG in SODIUM CHLORIDE 0.9% 230 ML IV SCH (20:45)
[2021-02-19] MEDS: guaiFENesin 600 MG TABCR PO SCH (21:50)
[2021-02-20] MEDS: LEVOTHYROXINE SODIUM 25 MCG TABLET PO SCH (05:11)
[2021-02-20 07:00] LABS: Basophils # (auto) 0.01 K/uL (0-0.2); Basophils % (auto) 0.1 %; Hemoglobin 11.9 g/dL (12.0-16.0); Immature Granulocytes # (auto) 0.13 K/uL (0.00-0.02); Immature Granulocytes % (auto) 1.2 %; Lymphocytes # (auto) 0.76 K/uL (1.2-3.4); Mean Corpuscular Hemoglobin 30.7 pg (25-34); Mean Corpuscular Volume 90.2 fL (80-100); Mean Platelet Volume 9.8 fL (7.4-10.4); Monocytes # (auto) 1.46 K/uL (0.11-0.59); Monocytes % (auto) 13.5 %; Neutrophils # (auto) 8.45 K/uL (1.4-6.5); Neutrophils % (auto) 78.2 %; Platelet Count 250 K/uL (130-400); RDW Coefficient of Variation 13.5 % (11.5-14.5); RDW Standard Deviation 44.7 fL (36.4-46.3); Red Blood Count 3.88 M/uL (4.2-5.4); White Blood Count 10.81 K/uL (4.8-10.8)
[2021-02-20 07:11] LABS: Estimated Average Glucose 146 mg/dl; Hemoglobin A1C 6.7 % (4.5-5.6)
[2021-02-20 07:31] LABS: BUN Creatinine Ratio 20.6 (10-20); C Reactive Protein 0.42 mg/dl (0-0.29); Calcium 9.3 mg/dl (8.5-10.1); Creatinine Clr Calc Pharmacy 53.5 ml/min; Est GFR (African American) 73.5 ml/min; Est GFR (Non-African American) 63.4 ml/min; Potassium 4.1 mmol/L (3.5-5.1)
[2021-02-20] MEDS: CARBOHYDRATES FOR HYPOGLYCEMIA PO PRN (08:15)
[2021-02-20] MEDS: ALPRAZolam 0.5 MG TABLET PO SCH ×3 (08:33→21:00)
[2021-02-20] MEDS: ATORVASTATIN 40 MG TAB PO SCH (08:34)
[2021-02-20] MEDS: ASPIRIN 81 MG ECTAB PO SCH (08:34)
[2021-02-20] MEDS: dexAMETHasone 6 MG in SYRINGE 0 ML IV SCH (08:34)
[2021-02-20] MEDS: BENZONATATE 100 MG CAPSULE PO SCH ×3 (08:36→21:00)
[2021-02-20] MEDS: DOXYCYCLINE HYCLATE 100 MG CAP PO SCH ×2 (08:36→21:01)
[2021-02-20] MEDS: guaiFENesin 600 MG TABCR PO SCH ×2 (08:37→21:02)
[2021-02-20] MEDS: GABAPENTIN 300 MG CAP PO SCH ×3 (08:37→21:02)
[2021-02-20] MEDS: UMECLIDINIUM BROMIDE 62.5MCG/BLISTER 7 PUFFS/INHALER INH SCH (08:37)
[2021-02-20] MEDS: FLUTICASONE/VILANTEROL 100/25MCG 14 PUFFS/INHALER INH SCH (08:37)
[2021-02-20] MEDS: ENOXAPARIN INJ 40 MG/0.4 ML SYR SQ SCH (08:37)
[2021-02-20] MEDS: HYDROXYCHLOROQUINE SULFATE 200 MG TAB PO SCH (08:38)
[2021-02-20] MEDS: MONTELUKAST SODIUM 10 MG TABLET PO SCH (08:38)
[2021-02-20] MEDS: PANTOprazole 40 MG TAB PO SCH (08:39)
[2021-02-20] MEDS: PROPRANOLOL HCL 10 MG TAB PO SCH ×3 (08:39→21:04)
[2021-02-20] MEDS: INSULIN ASPART 100 UNITS/ML 3 ML PEN SC SCH ×4 (09:02→20:39)
[2021-02-20] MEDS: INSULIN GLARGINE SOLOSTAR 100 UNITS/ML 3 ML PEN SC SCH ×2 (09:03→20:05)
--- NOTE | 2021-02-20 13:24 | Hospitalist Progress Note ---
Date of Service February 20, 2021 Assessment & Plan (1) Respiratory failure with hypoxia: Plan: Secondary to severe COVID-19 pneumonia Chest x-ray is not showing any typical viral pneumonic picture Requiring high flow oxygen mask to maintain saturation Received Decadron but refused remdesivir Cough medicines as needed We will monitor inflammatory markers-CRP is at 0.42 Clinically much better today We will continue current management Advised to use spirometer and also flutter valve History of COPD/asthma Complicated bronchitis with cough and upper nonproductive sputum Has been on doxycycline We will continue current nebulized bronchodilator Rheumatoid arthritis on chronic steroid therapy May complicate current Covid 19 infection HTN, slightly elevated We will continue her usual medication Hyperlipidemia, on statin Rx DM2 on oral medications, well-controlled as of recent hemoglobin A1c of 6.23 July 2020 Basal insulin, ISS BG goal 1 10-1 40, carb count coverage, update hemoglobin A1c Hypothyroidism, euthyroid as of today's TSH Essential tremors on propranolol past tobacco abuse. DVT prophylaxis per Lovenox subcu Full code Patient requests for her to be updated of of her progress. Mr. Karan Corona, contact #[phone]. Admission and Anticipated Discharge Date Admission Date: February 18, 2021 Subjective 02/19/2021 The patient was seen and examined in medical telemetry unit and in the Covid room She has been complaining of cough without any phlegm Still requiring 15 L of oxygen via oxygen mask to maintain saturation Denies any chest pain, palpitation, fever or chills 02/20/2021 The patient was seen and examined in medical telemetry unit and in Covid room She has been feeling much better today and is still requiring 15 L oxygen via oxygen mask She has been communicating well with me without any significant shortness of breath Review of Systems Review of Systems: All systems reviewed and are unremarkable except as noted below Respiratory: + cough and + dyspnea Physical Exam Physical Exam: Lying in bed with moderate shortness of breath Constitutional: + ill appearing and average body habitus Eyes: PERRL, conjunctivae normal, anicteric sclerae ENMT: external ear and nose normal, oropharynx normal Neck: trachea midline, no thyromegaly Respiratory: + respiratory distress and + cough Auscultation: + diminished lung sounds and + crackles (At the bases) Cardiovascular: Rate/Rhythm: regular rate and regular rhythm; not tachycardic Heart Sounds: normal S1 and normal S2; no murmur Extremities: no edema Gastrointestinal (Abdomen): Inspection/Auscultation: normal bowel sounds; abdomen not distended Percussion/Palpation: abdomen soft; abdomen nontender Musculoskeletal: No acute arthritis in any joint Neurologic: Alert, awake and oriented x3. No focal sensory no motor deficit appreciated Results & Data Results & Data ([facility]) Vital Signs (Past 12 Hours) Vital Signs Temp Pulse Pulse Resp BP Pulse Ox Pulse Ox 02/20/21 11:46 36.7 C 53 L 20 104/56 L 94 02/20/21 10:50 46 L 02/20/21 10:49 96 02/20/21 08:13 36.5 C 63 20 109/59 L 86 L 02/20/21 05:40 93 02/20/21 03:27 36.5 C 47 L 18 114/60 92 Laboratory Results Short CBC 02/20/21 Range/Units 06:24 WBC 10.81 H (4.8-10.8) K/uL Hgb 11.9 L (12.0-16.0) g/dL Hct 35.0 L (37-47) % Plt Count 250 (130-400) K/uL BMP 02/20/21 06:24 Sodium 138 Potassium 4.1 Chloride 104 Carbon Dioxide 28 BUN 18 Creatinine 0.89 Glucose 69 L Calcium 9.3 Medications Administered Current Inpatient Medications Albuterol (Albut/Ipratrop 3mg/0.5mg Neb 3 Ml Vial) 3 ml NEB Q2H PRN PRN Reason: Wheezing Stop: 03/20/21 22:57 Alprazolam (Alprazolam 0.5 Mg Tablet) 0.5 mg PO TID [facility] Stop: 03/20/21 23:09 Last Admin: 02/20/21 08:33 Dose: 0.5 mg Documented by: Aspirin (Aspirin 81 Mg Ectab) 81 mg PO DAILY [facility] Stop: 03/21/21 08:59 Last Admin: 02/20/21 08:34 Dose: 81 mg Documented by: Atorvastatin Calcium (Atorvastatin 40 Mg Tab) 40 mg PO DAILY [facility] Stop: 03/21/21 08:59 Last Admin: 02/20/21 08:34 Dose: 40 mg Documented by: Benzonatate (Benzonatate 100 Mg Capsule) 100 mg PO TID [facility] Stop: 03/21/21 13:59 Last Admin: 02/20/21 08:36 Dose: 100 mg Documented by: Dextrose (Dextrose 50% 50 Ml Syringe) 25 - 50 ml IV UD PRN; Protocol PRN Reason: Hypoglycemia Protocol Stop: 03/20/21 22:57 Doxycycline Hyclate (Doxycycline Hyclate 100 Mg Cap) 100 mg PO BID [facility]; Protocol Stop: 02/26/21 08:59 Last Admin: 02/20/21 08:36 Dose: 100 mg Documented by: Enoxaparin Sodium (Enoxaparin Inj 40 Mg/0.4 Ml Syr) 40 mg SQ QAM [facility] Stop: 03/21/21 08:59 Last Admin: 02/20/21 08:37 Dose: 40 mg Documented by: Fluticasone/Vilanterol (Fluticasone/Vilanterol 100/25mcg 14 Puffs/Inhaler) 1 puffs INH DAILY [facility]; Protocol Stop: 03/21/21 08:59 Last Admin: 02/20/21 08:37 Dose: 1 puffs Documented by: Gabapentin (Gabapentin 300 Mg Cap) 300 mg PO TID [facility] Stop: 03/20/21 23:29 Last Admin: 02/20/21 08:37 Dose: 300 mg Documented by: Glucagon (Glucagon For Inj 1 Mg Vial) 1 mg SQ UD PRN; Protocol PRN Reason: Hypoglycemia Protocol Stop: 03/20/21 22:57 Glucose (Glucose 10 Tabs/Tube) 4 - 8 tabs PO UD PRN; Protocol PRN Reason: Hypoglycemia Protocol Stop: 03/20/21 22:57 Glucose (Glucose 40% Gel 15 Gm Tube) 15 - 30 gm PO UD PRN; Protocol PRN Reason: Hypoglycemia Protocol Stop: 03/20/21 22:57 Guaifenesin (Guaifenesin 600 Mg Tabcr) 1,200 mg PO Q12 [facility] Stop: 03/21/21 20:59 Last Admin: 02/20/21 08:37 Dose: 1,200 mg Documented by: Hydroxychloroquine Sulfate (Hydroxychloroquine Sulfate 200 Mg Tab) 400 mg PO DAILY [facility] Stop: 03/21/21 08:59 Last Admin: 02/20/21 08:38 Dose: 400 mg Documented by: Dexamethasone 6 mg/ Syringe 1.5 mls @ 1 mls/min IV DAILY [facility] Stop: 03/21/21 08:59 Last Admin: 02/20/21 08:34 Dose: 1 mls/min Documented by: Promethazine HCl 12.5 mg/ (Sodium Chloride) 50.5 mls @ 202 mls/hr IV Q6H PRN PRN Reason: Nausea And Vomiting Stop: 03/20/21 22:57 Insulin Aspart (Insulin Aspart 100 Units/Ml 3 Ml Pen) 0 units SC ACHS [facility] Stop: 03/20/21 23:29 Last Admin: 02/20/21 12:58 Dose: Not Given Documented by: Insulin Glargine (Insulin Glargine Solostar 100 Units/Ml 3 Ml Pen) 5 units SC BID [facility] Stop: 03/20/21 23:29 Last Admin: 02/20/21 09:03 Dose: 5 units Documented by: Levothyroxine Sodium (Levothyroxine Sodium 25 Mcg Tablet) 25 mcg PO DAILYBB [facility] Stop: 03/21/21 06:29 Last Admin: 02/20/21 05:11 Dose: 25 mcg Documented by: Miscellaneous (Carbohydrates For Hypoglycemia ) 15 - 30 gm PO UD PRN PRN Reason: Hypoglycemia Protocol Stop: 03/20/21 22:57 Last Admin: 02/20/21 08:15 Dose: 15 gm Documented by: Montelukast Sodium (Montelukast Sodium 10 Mg Tablet) 10 mg PO DAILY [facility] Stop: 03/21/21 08:59 Last Admin: 02/20/21 08:38 Dose: 10 mg Documented by: Pantoprazole Sodium (Pantoprazole 40 Mg Tab) 40 mg PO DAILY [facility]; Protocol Stop: 03/21/21 08:59 Last Admin: 02/20/21 08:39 Dose: 40 mg Documented by: Propranolol HCl (Propranolol Hcl 10 Mg Tab) 10 mg PO TID [facility] Stop: 03/20/21 23:29 Last Admin: 02/20/21 08:39 Dose: 10 mg Documented by: Tramadol HCl (Tramadol Hcl 50 Mg Tablet) 25 mg PO Q4H PRN PRN Reason: Pain Stop: 03/20/21 22:57 Last Admin: 02/19/21 18:37 Dose: 25 mg Documented by: Umeclidinium [place] (Umeclidinium [place] 62.5mcg/Blister 7 Puffs/Inhaler) 1 puffs INH DAILY [facility] Stop: 03/21/21 08:59 Last Admin: 02/20/21 08:37 Dose: 1 puffs Documented by: (1) Respiratory failure with hypoxia Chronicity: acute Qualified Code(s): J96.01 - Acute respiratory failure with hypoxia
[2021-02-20] MEDS ORDERED: CALCIUM CARBONATE 500 MG CHEWABLE TAB PO STA (21:02)
[2021-02-20 21:43] LABS: Partial Thromboplastin Ratio 0.9
[2021-02-20 21:52] LABS: Alanine Aminotransferase 42 U/L (12-78); Albumin Level 2.7 gm/dl (3.4-5.0); Aspartate Aminotransferase 27 U/L (15-37); Blood Urea Nitrogen 23 mg/dl (7-18); Calcium 9.3 mg/dl (8.5-10.1); Carbon Dioxide 26 mmol/L (21-32); Chloride 99 mmol/L (98-107); Creatinine Clr Calc Pharmacy 43.3 ml/min; Est GFR (African American) 56.9 ml/min; Est GFR (Non-African American) 49.1 ml/min; Glucose 148 mg/dl (70-99); Lipase 134 U/L (73-393); Potassium 4.4 mmol/L (3.5-5.1); Sodium 132 mmol/L (136-145)
[2021-02-20 21:57] LABS: Albumin Globulin Ratio 0.7 (0.9-2); Alkaline Phosphatase 74 U/L (45-117); Bilirubin,Total 0.7 mg/dl (0.2-1); Total Protein 6.7 gm/dl (6.4-8.2); Troponin I < 0.015 ng/ml (0-0.045)
[2021-02-20] MEDS ORDERED: traMADol HCL 50 MG TABLET PO STA (23:04)
[2021-02-21] MEDS ORDERED: ALBUT/IPRATROP 3MG/0.5MG NEB 3 ML VIAL NEB STA (00:12)
[2021-02-21] MEDS ORDERED: dexAMETHasone 6 MG in SYRINGE 0 ML IV SCH (00:15)
[2021-02-21] MEDS ORDERED: OPTIRAY 320 125ml IV ONE (01:56)
[2021-02-21] MEDS ORDERED: SODIUM CHLORIDE 0.9% 500 ML IV ONE (02:49)
[2021-02-21] MEDS: LEVOTHYROXINE SODIUM 25 MCG TABLET PO SCH (06:16)
[2021-02-21 06:56] LABS: Basophils # (auto) 0.01 K/uL (0-0.2); Basophils % (auto) 0.1 %; Hematocrit (blood only) 34.4 % (37-47); Hemoglobin 12.2 g/dL (12.0-16.0); Immature Granulocytes # (auto) 0.14 K/uL (0.00-0.02); Immature Granulocytes % (auto) 1.1 %; Lymphocytes # (auto) 0.57 K/uL (1.2-3.4); Lymphocytes % (auto) 4.4 %; Mean Corpuscular Hemoglobin 30.8 pg (25-34); Mean Corpuscular Hgb Conc 35.5 g/dL (32-36); Mean Corpuscular Volume 86.9 fL (80-100); Monocytes # (auto) 1.17 K/uL (0.11-0.59); Neutrophils # (auto) 11.18 K/uL (1.4-6.5); Neutrophils % (auto) 85.4 %; Platelet Count 289 K/uL (130-400); RDW Coefficient of Variation 13.3 % (11.5-14.5); RDW Standard Deviation 42.7 fL (36.4-46.3); Red Blood Count 3.96 M/uL (4.2-5.4); White Blood Count 13.07 K/uL (4.8-10.8)
[2021-02-21 07:31] LABS: BUN Creatinine Ratio 23.5 (10-20); Calcium 9.5 mg/dl (8.5-10.1); Creatinine Clr Calc Pharmacy 51.8 ml/min; Est GFR (African American) 69.7 ml/min; Est GFR (Non-African American) 60.1 ml/min; Magnesium 2.1 mg/dl (1.8-2.4); Phosphorus 3.2 mg/dl (2.5-4.9); Potassium 4.3 mmol/L (3.5-5.1)
--- NOTE | 2021-02-21 08:38 | CT Scan Report ---
CT angio chest dissec wo/w con HISTORY: 75 years-old Female cp going to the back acute chest and back pain without reported trauma COMPARISON: Chest radiograph 02/18/2021, CT abdomen and pelvis 01/24/2018 TECHNIQUE: CTA of the chest was obtained both with and without the use of 110 mL Optiray 320. 3-D cor onal and sagittal MIPS were obtained from the axial data set and were submitted for review. All measu rements were obtained according to NASCET criteria. A dose lowering technique was used consistent wit h the principals diana KILPATRICK. FINDINGS: CTA: Mild cardiomegaly. No pericardial effusion. Moderate coronary artery calcifications. The noncontrast scan demonstrates no intramural or mediastinal hematoma. Moderate atherosclerosis of the thoracic aor ta without aneurysm or dissection. There is patency of the imaged great vessels. The opacified pulmon nelda artery is unremarkable. Respiratory motion artifact limits the study. CT CHEST: Unremarkable thyroid. Mild right hilar adenopathy lymph nodes measure up to 10 mm, likely reactive. N o pneumothorax or pleural effusion. Multifocal bilateral subpleural predominant groundglass opacities are noted within a multilobar distribution. 4 mm solid nodule of the subpleural medial segment right middle lobe. The central airways are patent. No acute process of the imaged upper abdomen. Unremarkable soft tissues. Levoscoliosis of the midthor acic spine. Degenerative changes of the right shoulder and spine. Left shoulder total joint arthropla sty. IMPRESSION: 1. Unremarkable CTA of the chest. No thoracic aortic aneurysm or dissection. 2. Multifocal bilateral groundglass opacities are suggestive of viral pneumonia. 3. Mild right hilar adenopathy is likely reactive. 4. Cardiomegaly with moderate coronary artery calcifications. ACT 112: Negative or not required by law. The above report was generated using voice recognition software. It may contain grammatical, syntax o r spelling errors. Electronically signed by: Michele Ruiz M.D. 02/21/2021 8:37 AM
[2021-02-21] MEDS: BENZONATATE 100 MG CAPSULE PO SCH ×3 (08:49→20:55)
[2021-02-21] MEDS: ASPIRIN 81 MG ECTAB PO SCH (08:49)
[2021-02-21] MEDS: ALPRAZolam 0.5 MG TABLET PO SCH ×3 (08:49→20:55)
[2021-02-21] MEDS: HYDROXYCHLOROQUINE SULFATE 200 MG TAB PO SCH (08:49)
[2021-02-21] MEDS: DOXYCYCLINE HYCLATE 100 MG CAP PO SCH ×2 (08:50→20:54)
[2021-02-21] MEDS: UMECLIDINIUM BROMIDE 62.5MCG/BLISTER 7 PUFFS/INHALER INH SCH (08:50)
[2021-02-21] MEDS: PROPRANOLOL HCL 10 MG TAB PO SCH ×3 (08:50→22:41)
[2021-02-21] MEDS: PANTOprazole 40 MG TAB PO SCH (08:50)
[2021-02-21] MEDS: GABAPENTIN 300 MG CAP PO SCH ×3 (08:50→20:55)
[2021-02-21] MEDS: ATORVASTATIN 40 MG TAB PO SCH (08:50)
[2021-02-21] MEDS: FLUTICASONE/VILANTEROL 100/25MCG 14 PUFFS/INHALER INH SCH (08:50)
[2021-02-21] MEDS: guaiFENesin 600 MG TABCR PO SCH ×2 (08:51→20:55)
[2021-02-21] MEDS: ENOXAPARIN INJ 40 MG/0.4 ML SYR SQ SCH (08:52)
[2021-02-21] MEDS: MONTELUKAST SODIUM 10 MG TABLET PO SCH (08:52)
--- NOTE | 2021-02-21 08:54 | Electrocardiogram Report ---
Test Reason : Blood Pressure : / mmHG Vent. Rate : 047 BPM Atrial Rate : 047 BPM P-R Int : 154 ms QRS Dur : 098 ms QT Int : 488 ms P-R-T Axes : -05 -11 036 degrees QTc Int : 431 ms Sinus bradycardia Voltage criteria for left ventricular hypertrophy Nonspecific ST and T wave abnormality Abnormal ECG When compared with ECG of 18-FEB-2021 15:44, No significant change was found Confirmed by Al Mahoney ([id number]) on 02/21/2021 8:54:01 AM Referred By: REFERRED SELF Confirmed By:Anthony Mahoney
[2021-02-21] MEDS: INSULIN GLARGINE SOLOSTAR 100 UNITS/ML 3 ML PEN SC SCH ×2 (09:24→22:41)
[2021-02-21] MEDS: INSULIN ASPART 100 UNITS/ML 3 ML PEN SC SCH ×4 (09:24→22:42)
[2021-02-21] MEDS: traMADol HCL 50 MG TABLET PO PRN ×2 (11:08→20:58)
--- NOTE | 2021-02-21 18:17 | Hospitalist Progress Note ---
Date of Service February 21, 2021 Assessment & Plan (1) Respiratory failure with hypoxia: Plan: Acute respiratory failure with hypoxia Secondary to severe COVID-19 pneumonia Completed Covid vaccine Chest x-ray is not showing any typical viral pneumonic picture Requiring high flow oxygen mask to maintain saturation Received Decadron but refused remdesivir Cough medicines as needed We will monitor inflammatory markers-CRP is at 0.42 CTA did not show any pulmonary embolism Clinically a lot better-advised to change oxygen mask to nasal cannula and reduce oxygen delivery Continue current management with spirometry and also flutter valve History of COPD/asthma Complicated bronchitis with cough and upper nonproductive sputum Has been on doxycycline We will continue current nebulized bronchodilator Rheumatoid arthritis on chronic steroid therapy May complicate current Covid 19 infection HTN, slightly elevated We will continue her usual medication Hyperlipidemia, on statin Rx DM2 on oral medications, well-controlled as of recent hemoglobin A1c of 6.23 July 2020 Basal insulin, ISS BG goal 1 10-1 40, carb count coverage, update hemoglobin A1c Hypothyroidism, euthyroid as of today's TSH Essential tremors on propranolol past tobacco abuse. DVT prophylaxis per Lovenox subcu Full code Patient requests for her to be updated of of her progress. Mr. Karan Corona, contact #[phone].-Tried to call the but no reply 02/21/2021 Admission and Anticipated Discharge Date Admission Date: February 18, 2021 Subjective 02/19/2021 The patient was seen and examined in medical telemetry unit and in the Covid room She has been complaining of cough without any phlegm Still requiring 15 L of oxygen via oxygen mask to maintain saturation Denies any chest pain, palpitation, fever or chills 02/20/2021 The patient was seen and examined in medical telemetry unit and in Covid room She has been feeling much better today and is still requiring 15 L oxygen via oxygen mask She has been communicating well with me without any significant shortness of breath 02/21/2021 The patient was seen and examined in medical telemetry unit and in the Covid room She has been feeling much better and has been requiring 15 L of oxygen via oxygen mask to maintain saturation Denies any symptoms except minimal cough Review of Systems Review of Systems: All systems reviewed and are unremarkable except as noted below Respiratory: + cough and + dyspnea Physical Exam Physical Exam: Lying in bed with moderate shortness of breath Constitutional: + ill appearing and average body habitus Eyes: PERRL, conjunctivae normal, anicteric sclerae ENMT: external ear and nose normal, oropharynx normal Neck: trachea midline, no thyromegaly Respiratory: + respiratory distress and + cough Auscultation: + diminished lung sounds and + crackles (At the bases) Cardiovascular: Rate/Rhythm: regular rate and regular rhythm; not tachycardic Heart Sounds: normal S1 and normal S2; no murmur Extremities: no edema Gastrointestinal (Abdomen): Inspection/Auscultation: normal bowel sounds; abdomen not distended Percussion/Palpation: abdomen soft; abdomen nontender Musculoskeletal: No acute arthritis in any joint Neurologic: Alert, awake and oriented x3 Results & Data Results & Data ([facility]) Vital Signs (Past 12 Hours) Vital Signs Temp Pulse Pulse Resp BP Pulse Ox Pulse Ox 02/21/21 15:52 49 L 02/21/21 15:32 92 02/21/21 14:23 36.9 C 49 L 20 120/70 91 02/21/21 11:36 36.6 C 50 L 18 131/62 96 02/21/21 09:00 44 L 91 02/21/21 08:36 36.6 C 60 18 133/72 93 Laboratory Results Short CBC 02/21/21 Range/Units 06:25 WBC 13.07 H (4.8-10.8) K/uL Hgb 12.2 (12.0-16.0) g/dL Hct 34.4 L (37-47) % Plt Count 289 (130-400) K/uL BMP 02/20/21 02/21/21 21:18 06:25 Sodium 132 L 133 L Potassium 4.4 4.3 Chloride 99 102 Carbon Dioxide 26 22 BUN 23 H 22 H Creatinine 1.10 0.93 Glucose 148 H 113 H Calcium 9.3 9.5 Cardiac Enzymes 02/20/21 Range/Units 21:18 Troponin I < 0.015 (0-0.045) ng/ml Liver Function 02/20/21 Range/Units 21:18 Total Bilirubin 0.7 (0.2-1) mg/dl AST 27 (15-37) U/L ALT 42 (12-78) U/L Alkaline Phosphatase 74 (45-117) U/L Albumin 2.7 L (3.4-5.0) gm/dl Medications Administered Current Inpatient Medications Albuterol (Albut/Ipratrop 3mg/0.5mg Neb 3 Ml Vial) 3 ml NEB Q2H PRN PRN Reason: Wheezing Stop: 03/20/21 22:57 Alprazolam (Alprazolam 0.5 Mg Tablet) 0.5 mg PO TID [facility] Stop: 03/20/21 23:09 Last Admin: 02/21/21 14:26 Dose: 0.5 mg Documented by: Aspirin (Aspirin 81 Mg Ectab) 81 mg PO DAILY [facility] Stop: 03/21/21 08:59 Last Admin: 02/21/21 08:49 Dose: 81 mg Documented by: Atorvastatin Calcium (Atorvastatin 40 Mg Tab) 40 mg PO DAILY [facility] Stop: 03/21/21 08:59 Last Admin: 02/21/21 08:50 Dose: 40 mg Documented by: Benzonatate (Benzonatate 100 Mg Capsule) 100 mg PO TID [facility] Stop: 03/21/21 13:59 Last Admin: 02/21/21 14:26 Dose: 100 mg Documented by: Dextrose (Dextrose 50% 50 Ml Syringe) 25 - 50 ml IV UD PRN; Protocol PRN Reason: Hypoglycemia Protocol Stop: 03/20/21 22:57 Doxycycline Hyclate (Doxycycline Hyclate 100 Mg Cap) 100 mg PO BID [facility]; Protocol Stop: 02/26/21 08:59 Last Admin: 02/21/21 08:50 Dose: 100 mg Documented by: Enoxaparin Sodium (Enoxaparin Inj 40 Mg/0.4 Ml Syr) 40 mg SQ QAM [facility] Stop: 03/21/21 08:59 Last Admin: 02/21/21 08:52 Dose: 40 mg Documented by: Fluticasone/Vilanterol (Fluticasone/Vilanterol 100/25mcg 14 Puffs/Inhaler) 1 puffs INH DAILY [facility]; Protocol Stop: 03/21/21 08:59 Last Admin: 02/21/21 08:50 Dose: 1 puffs Documented by: Gabapentin (Gabapentin 300 Mg Cap) 300 mg PO TID [facility] Stop: 03/20/21 23:29 Last Admin: 02/21/21 14:27 Dose: 300 mg Documented by: Glucagon (Glucagon For Inj 1 Mg Vial) 1 mg SQ UD PRN; Protocol PRN Reason: Hypoglycemia Protocol Stop: 03/20/21 22:57 Glucose (Glucose 10 Tabs/Tube) 4 - 8 tabs PO UD PRN; Protocol PRN Reason: Hypoglycemia Protocol Stop: 03/20/21 22:57 Glucose (Glucose 40% Gel 15 Gm Tube) 15 - 30 gm PO UD PRN; Protocol PRN Reason: Hypoglycemia Protocol Stop: 03/20/21 22:57 Guaifenesin (Guaifenesin 600 Mg Tabcr) 1,200 mg PO Q12 [facility] Stop: 03/21/21 20:59 Last Admin: 02/21/21 08:51 Dose: 1,200 mg Documented by: Hydroxychloroquine Sulfate (Hydroxychloroquine Sulfate 200 Mg Tab) 400 mg PO DAILY [facility] Stop: 03/21/21 08:59 Last Admin: 02/21/21 08:49 Dose: 400 mg Documented by: Promethazine HCl 12.5 mg/ (Sodium Chloride) 50.5 mls @ 202 mls/hr IV Q6H PRN PRN Reason: Nausea And Vomiting Stop: 03/20/21 22:57 Dexamethasone 6 mg/ Syringe 1.5 mls @ 1 mls/min IV DAILY [facility] Stop: 03/23/21 00:14 Last Admin: 02/21/21 01:58 Dose: 1 mls/min Documented by: Insulin Aspart (Insulin Aspart 100 Units/Ml 3 Ml Pen) 0 units SC ACHS [facility] Stop: 03/20/21 23:29 Last Admin: 02/21/21 13:09 Dose: 6 units Documented by: Insulin Glargine (Insulin Glargine Solostar 100 Units/Ml 3 Ml Pen) 5 units SC BID [facility] Stop: 03/20/21 23:29 Last Admin: 02/21/21 09:24 Dose: 5 units Documented by: Levothyroxine Sodium (Levothyroxine Sodium 25 Mcg Tablet) 25 mcg PO DAILYBB [facility] Stop: 03/21/21 06:29 Last Admin: 02/21/21 06:16 Dose: 25 mcg Documented by: Miscellaneous (Carbohydrates For Hypoglycemia ) 15 - 30 gm PO UD PRN PRN Reason: Hypoglycemia Protocol Stop: 03/20/21 22:57 Last Admin: 02/20/21 08:15 Dose: 15 gm Documented by: Montelukast Sodium (Montelukast Sodium 10 Mg Tablet) 10 mg PO DAILY [facility] Stop: 03/21/21 08:59 Last Admin: 02/21/21 08:52 Dose: 10 mg Documented by: Pantoprazole Sodium (Pantoprazole 40 Mg Tab) 40 mg PO DAILY [facility]; Protocol Stop: 03/21/21 08:59 Last Admin: 02/21/21 08:50 Dose: 40 mg Documented by: Propranolol HCl (Propranolol Hcl 10 Mg Tab) 10 mg PO TID [facility] Stop: 03/20/21 23:29 Last Admin: 02/21/21 14:26 Dose: 10 mg Documented by: Tramadol HCl (Tramadol Hcl 50 Mg Tablet) 25 mg PO Q4H PRN PRN Reason: Pain Stop: 03/20/21 22:57 Last Admin: 02/21/21 11:08 Dose: 25 mg Documented by: Umeclidinium [place] (Umeclidinium [place] 62.5mcg/Blister 7 Puffs/Inhaler) 1 puffs INH DAILY [facility] Stop: 03/21/21 08:59 Last Admin: 02/21/21 08:50 Dose: 1 puffs Documented by: (1) Respiratory failure with hypoxia Chronicity: acute Qualified Code(s): J96.01 - Acute respiratory failure with hypoxia
[2021-02-22] MEDS ORDERED: ALBUT/IPRATROP 3MG/0.5MG NEB 3 ML VIAL NEB STA (02:05)
[2021-02-22] MEDS ORDERED: dexAMETHasone 6 MG in SYRINGE 0 ML IV SCH (02:05)
[2021-02-22] MEDS ORDERED: MAGNESIUM SULFATE / D5W 1 GM/100 ML BAG IV ONE (02:06)
[2021-02-22 03:26] LABS: Base Excess ABG -0.2 mEq/L (-9-1.8); HCO3 ABG 23 mmol/L (19-24); Oxygen Saturation ABG 89.3 % (90-95); PCO2 ABG 33 mmHg (35-46); PO2 ABG 54 mmHg (80-95); pH ABG 7.46 (7.35-7.45)
[2021-02-22 03:30] LABS: Allen Test Pos (Pos)
[2021-02-22 03:31] LABS: Basophils # (auto) 0.01 K/uL (0-0.2); Basophils % (auto) 0.1 %; Hematocrit (blood only) 36.3 % (37-47); Hemoglobin 12.6 g/dL (12.0-16.0); Immature Granulocytes # (auto) 0.17 K/uL (0.00-0.02); Immature Granulocytes % (auto) 1.2 %; Lymphocytes # (auto) 0.93 K/uL (1.2-3.4); Lymphocytes % (auto) 6.8 %; Mean Corpuscular Hemoglobin 30.9 pg (25-34); Mean Corpuscular Hgb Conc 34.7 g/dL (32-36); Mean Platelet Volume 9.8 fL (7.4-10.4); Monocytes # (auto) 1.54 K/uL (0.11-0.59); Monocytes % (auto) 11.2 %; Neutrophils # (auto) 11.06 K/uL (1.4-6.5); Neutrophils % (auto) 80.7 %; Platelet Count 285 K/uL (130-400); RDW Coefficient of Variation 13.3 % (11.5-14.5); RDW Standard Deviation 43.6 fL (36.4-46.3); Red Blood Count 4.08 M/uL (4.2-5.4); White Blood Count 13.71 K/uL (4.8-10.8)
[2021-02-22 03:37] LABS: BUN Creatinine Ratio 22.5 (10-20); Blood Urea Nitrogen 22 mg/dl (7-18); Calcium 9.8 mg/dl (8.5-10.1); Carbon Dioxide 25 mmol/L (21-32); Creatinine Clr Calc Pharmacy 48.2 ml/min; Est GFR (African American) 63.8 ml/min; Est GFR (Non-African American) 55.1 ml/min; Glucose 74 mg/dl (70-99); Magnesium 2.2 mg/dl (1.8-2.4)
[2021-02-22 03:39] LABS: C Reactive Protein < 0.29 mg/dl (0-0.29)
[2021-02-22] MEDS: LEVOTHYROXINE SODIUM 25 MCG TABLET PO SCH (05:05)
[2021-02-22 05:17] LABS: Chloride 103 mmol/L (98-107); Potassium 4.3 mmol/L (3.5-5.1); Sodium 135 mmol/L (136-145)
[2021-02-22] MEDS ORDERED: REMDESIVIR 200 MG in SODIUM CHLORIDE 0.9% 210 ML IV ONE (06:00)
[2021-02-22] MEDS: SODIUM CHLORIDE 0.9% 10ML FLUSH IV SCH (07:15)
[2021-02-22] MEDS: PANTOprazole 40 MG TAB PO SCH (08:29)
[2021-02-22] MEDS: ASPIRIN 81 MG ECTAB PO SCH (08:29)
[2021-02-22] MEDS: MONTELUKAST SODIUM 10 MG TABLET PO SCH (08:29)
[2021-02-22] MEDS: GABAPENTIN 300 MG CAP PO SCH ×3 (08:29→21:59)
[2021-02-22] MEDS: guaiFENesin 600 MG TABCR PO SCH ×2 (08:29→21:59)
[2021-02-22] MEDS: ENOXAPARIN INJ 40 MG/0.4 ML SYR SQ SCH (08:29)
[2021-02-22] MEDS: PROPRANOLOL HCL 10 MG TAB PO SCH ×3 (08:30→21:43)
[2021-02-22] MEDS: FLUTICASONE/VILANTEROL 100/25MCG 14 PUFFS/INHALER INH SCH (08:30)
[2021-02-22] MEDS: ALPRAZolam 0.5 MG TABLET PO SCH ×3 (08:30→21:59)
[2021-02-22] MEDS: DOXYCYCLINE HYCLATE 100 MG CAP PO SCH ×2 (08:30→21:59)
[2021-02-22] MEDS: BENZONATATE 100 MG CAPSULE PO SCH ×3 (08:30→21:59)
[2021-02-22] MEDS: UMECLIDINIUM BROMIDE 62.5MCG/BLISTER 7 PUFFS/INHALER INH SCH (08:30)
--- NOTE | 2021-02-22 08:37 | XRay Report ---
XR chest 1V portable INDICATION: MN ^low o2. TECHNIQUE: Single frontal radiograph of the chest was obtained. Comparison: Comparison is made to chest one view 02/18/2021 FINDINGS: No lines and tubes are seen. The cardiomediastinal silhouette is normal. Redemonstration of atelectas is or scarring in the right upper lobe and left lower lung. There are faint patchy airspace opacities which are slightly more prominent than in the prior exam. No evidence of pleural effusion or pneumot horax. Left reverse shoulder arthroplasty is unchanged. IMPRESSION: 1. Interval mild worsening of multifocal airspace opacities compatible with history of viral pneumon ia. 2. Additional findings are unchanged. ACT 112: Negative or not required by law. Electronically signed by: William Steen M.D. 02/22/2021 8:36 AM
--- NOTE | 2021-02-22 08:43 | Communication Note ---
Date of Service: February 22, 2021 Late entry : 2 AM Notified by RN of O2 sats 70s on 5 L. Patient without complaints. Not in distress as per RN. Chest x-ray as per my interpretation : Multifocal pneumonia (not present on admission CXR 02/18) AP Worsening hypoxemic respiratory failure secondary to severe COVID-19 pneumonia Remdesivir course (patient now agreeable after conversation over the phone) (Hold patient Plaquenil for RA while on Remdesivir.) Pulmonology consult (worsening Covid, hx COPD)
[2021-02-22] MEDS: INSULIN ASPART 100 UNITS/ML 3 ML PEN SC SCH ×4 (09:15→21:39)
[2021-02-22] MEDS: INSULIN GLARGINE SOLOSTAR 100 UNITS/ML 3 ML PEN SC SCH ×2 (09:16→21:40)
[2021-02-22] MEDS: ATORVASTATIN 40 MG TAB PO SCH (11:02)
--- NOTE | 2021-02-22 17:10 | Pulmonary Consultation ---
Date of Consultation February 22, 2021 Assessment & Plan (1) Respiratory failure with hypoxia: Chronicity: acute Qualified Code(s): J96.01 - Acute respiratory failure with hypoxia (2) COVID-19: Her CT chest findings are consistent with COVID-19 viral pneumonia. She is having slow improvement and continues to require supplemental oxygen. She will likely need to be discharged home on oxygen. I would recommend weaning steroids over the next 2 weeks, back to her home dose of prednisone that was used for her rheumatoid arthritis. I am going to transition her to 40 mg of prednisone starting tomorrow and then I would recommend tapering by 5 mg every 2 days. I have discontinued the Decadron. I do not think there is any role for remdesivir this far out into her illness. Remdesivir has been discontinued. I discussed this with the patient's hospitalist, Dr. Judge. The patient does not have COPD based on her PFTs from 2018. I am doubtful of her asthma diagnosis as well. She denies a history of allergies. It is unclear why she is on Singulair. She would likely benefit from outpatient pulmonary rehab. Repeat CT chest imaging without contrast can be considered in the next 8 to 12 weeks. I did tour counselor the patient regarding her diagnosis and treatment plan and she expressed understanding. Greater than 50% of the time was spent [id number] with the patient counseling them on their diagnosis and treatment plan. This note was dictated using voice recognition software and may include grammatical errors, extra words, word substitutions and other inaccuracies due to errors in the voice recognition software and differences in speech patterns. History of Present Illness Reason for Consultation: Acute hypoxemic respiratory failure in the setting of COVID-19 viral pneumonia Attending Physician: Nu De Souza MD History of Present Illness 75-year-old female with a past medical history of tobacco abuse, rheumatoid arthritis, hypertension, hyperlipidemia, diabetes mellitus type 2 and essential tremors who presented to the hospital due to increasing shortness of breath from Covid. Quit in her 40s. She smoked roughly 20 pack years. She was admitted on 02/18/2021. She went to [facility] prior to this hospitalization. She has been having increasing shortness of breath and fatigue. She is currently on 6 L of oxygen and saturating in the high 80s to low 90s. She was previously followed by [facility] Charles and Dr. Shah of the pulmonary clinic. She had a PFT in [facility] in 2018. She is vaccinated against COVID-19. Her chest x-ray from today demonstrates mildly worsening airspace opacities bilaterally. She has a chronically elevated right hemidiaphragm. CT chest from 02/21/2021 demonstrated multifocal airspace opacities consistent with COVID-19 viral pneumonia. FEV1/FVC 70 FEV1 1.99 L, 92% FVC 2.83 L, 100% TLC 103% RV 113% DLCO 67% DL/VA 91% Allergies Allergy/AdvReac Type Severity Reaction Status Date / Time amoxicillin Allergy Unknown Verified 12/20/20 14:14 acetaminophen AdvReac Unknown "I AVOID Verified 12/20/20 14:14 THIS BECAUSE OF MY LIVER COUNTS" clarithromycin [From Biaxin] AdvReac Unknown Verified 12/20/20 14:14 Home Medications Medication Instructions Recorded Confirmed Type alprazolam 0.5 mg tablet 0.5 mg PO TID tab 12/30/18 02/18/21 History aspirin 81 mg tablet,delayed 81 mg PO DAILY tab 12/30/18 02/18/21 History release atorvastatin 40 mg tablet 40 mg PO DAILY #30 tab 12/30/18 02/18/21 History dexlansoprazole 60 mg 60 mg PO DAILY cap 12/30/18 02/18/21 History capsule,biphase delayed release gabapentin 300 mg capsule 300 mg PO TID cap 12/30/18 02/18/21 History metformin 500 mg tablet 500 mg PO DAILY #180 tab 12/30/18 02/18/21 History montelukast 10 mg tablet 10 mg PO DAILY #90 tab 12/30/18 02/18/21 History paroxetine HCl 40 mg tablet 40 mg PO DAILY tab 12/30/18 02/18/21 History prednisone 5 mg tablet 5 mg PO DAILY tab 12/30/18 02/18/21 History propranolol 10 mg tablet 10 mg PO TID tab 12/30/18 02/18/21 History budesonide 0.25 mg/2 mL suspension 2 ml INHALATION BID #60 ml 12/29/19 02/18/21 Rx for nebulization hydroxychloroquine 200 mg tablet 400 mg PO DAILY tab 12/29/19 02/18/21 History ipratropium 0.5 mg-albuterol 3 mg 3 ml INHALATION Q4H PRN #180 ml 12/29/19 02/18/21 Rx (2.5 mg base)/3 mL nebulization soln levothyroxine 25 mcg capsule 25 mcg PO DAILY 12/29/19 02/18/21 History budesonide-formoterol HFA 160 2 puff INHALATION BID #3 inhaler 02/16/20 02/18/21 Rx mcg-4.5 mcg/actuation aerosol inhaler umeclidinium 62.5 mcg/actuation 1 inh INHALATION DAILY #3 inhaler 11/18/20 02/18/21 Rx blister powder for inhalation (Incruse Ellipta) Patient History Social History Smoking Status: Never smoker Hx Alcohol Use: No Hx Substance Use: No Preferred Language: Vietnamese Communication Ability: Effective Obstetrics Gynecology Physician Required: No Beliefs That Will Affect Care: None Current Living Situation: Spouse Other Information That Helps Us Care for You: No Feels Safe at Home: Yes Safety Concerns: Feels Safe At This Time Assistive Devices: Oxygen - Continuous Review of Systems Review of Systems: All systems reviewed & are unremarkable except as noted in HPI & below Physical Exam Physical Exam: Constitutional: Elderly appearing female in no significant distress. She is self proning. Eyes: Pupils are equal round and reactive to light. Conjunctivae are normal. Anicteric sclera. Ears, nose, mouth and throat: Nasal cannula in place. No obvious facial deformities. Neck: Trachea is midline. Visual inspection is normal. Respiratory: Diminished bilaterally. No use of accessory muscles. Cardiovascular: Regular rate and rhythm. No murmurs. No edema. Gastrointestinal: Normal bowel sounds, soft, nontender and nondistended. No hepatosplenomegaly noted. Musculoskeletal: No cyanosis. Patient is able to move all extremities. Strength is 5 out of 5 in the upper and lower extremities. Skin: No rashes, warm dry and intact. Neurologic: Essential tremor present. Psychiatric: Alert and oriented x3 with a euthymic affect. Results & Data Results & Data ([facility]) Vital Signs (Past 12 Hours) Vital Signs Temp Pulse Pulse Resp BP Pulse Ox Pulse Ox 02/22/21 16:00 59 L 02/22/21 15:00 97.5 F L 62 20 132/70 89 L 02/22/21 11:07 97.3 F L 71 18 113/70 93 02/22/21 09:49 52 L 02/22/21 09:00 92 02/22/21 07:55 98.2 F 55 L 18 113/68 93 vital signs, labs imaging were personally reviewed PG Care Time/CCT Total # of Minutes Spent Total Time Spent with Patient: Total time spent is greater than 50% in coordination of care (as documented) at patient's floor/unit and/or counseling patient: Coding Level of Care Code 76123 Initial Inpt Care Lvl 3 Diagnoses Respiratory failure with hypoxia J96.01 Chronicity: acute COVID-19 U07.1
--- NOTE | 2021-02-22 21:44 | Hospitalist Progress Note ---
Date of Service February 22, 2021 Assessment & Plan (1) Respiratory failure with hypoxia: Plan: Acute respiratory failure with hypoxia Secondary to severe COVID-19 pneumonia Completed Covid vaccine [employer] Chest x-ray is not showing any typical viral pneumonic picture CTA chest showed multifocal bilateral groundglass opacities are suggestive of viral pneumonia. CTA did not show any pulmonary embolism Pulmonary on board recommend the patient to discontinue remdesivir since no benefit due to the onset of symptoms more than 10 days IV Decadron was changed prednisone 40 mg. Will do slow taper course of prednisone by 5 every other days over 2 weeks as per pulm Continue to repeat CT chest in 8 to 12 weeks Continue oxygen supplement Continue incentive spirometry and flutter valve Continue to monitor closely History of COPD/asthma Complicated bronchitis with cough and upper nonproductive sputum Has been on doxycycline We will continue current nebulized bronchodilator Rheumatoid arthritis on chronic steroid therapy May complicate current Covid 19 infection HTN, slightly elevated We will continue her usual medication Hyperlipidemia, on statin Rx DM2 on oral medications, well-controlled as of recent hemoglobin A1c of 6.6 [facility] 2020 Basal insulin, ISS BG goal 1 10-1 40, carb count coverage, update hemoglobin A1c Hypothyroidism, euthyroid as of today's TSH Essential tremors on propranolol past tobacco abuse. DVT prophylaxis per Lovenox subcu Full code Patient requests for her to be updated of of her progress. Mr. Karan Corona, contact #[phone].-Tried to call the but no reply 02/21/2021 Admission and Anticipated Discharge Date Admission Date: February 18, 2021 Subjective Patient was seen and examined for follow-up of shortness of breath due to COVID- 19 lying in bed with no acute distress she said that she haven't a hard time to bring the phlegm up Continue require 6 L oxygen supplement Denies any chest pain, palpitation, dizziness, any shortness of breath. Review of Systems Review of Systems: All systems reviewed & are unremarkable except as noted in Subjective Results & Data Results & Data ([facility]) Vital Signs (Past 12 Hours) Vital Signs Temp Pulse Pulse Resp BP Pulse Ox 02/22/21 20:46 36.7 C 62 18 107/64 92 02/22/21 16:00 59 L 02/22/21 15:00 36.4 C L 62 20 132/70 89 L 02/22/21 11:07 36.3 C L 71 18 113/70 93 02/22/21 09:49 52 L (1) Respiratory failure with hypoxia Chronicity: acute Qualified Code(s): J96.01 - Acute respiratory failure with hypoxia
[2021-02-23] MEDS: LEVOTHYROXINE SODIUM 25 MCG TABLET PO SCH (06:23)
[2021-02-23] MEDS: CARBOHYDRATES FOR HYPOGLYCEMIA PO PRN (08:15)
[2021-02-23] MEDS: INSULIN ASPART 100 UNITS/ML 3 ML PEN SC SCH ×4 (08:16→20:48)
[2021-02-23] MEDS: ALPRAZolam 0.5 MG TABLET PO SCH ×3 (08:51→21:08)
[2021-02-23] MEDS: BENZONATATE 100 MG CAPSULE PO SCH ×3 (08:53→21:09)
[2021-02-23] MEDS: DOXYCYCLINE HYCLATE 100 MG CAP PO SCH ×2 (08:53→21:09)
[2021-02-23] MEDS: ATORVASTATIN 40 MG TAB PO SCH (08:53)
[2021-02-23] MEDS: ASPIRIN 81 MG ECTAB PO SCH (08:53)
[2021-02-23] MEDS: ENOXAPARIN INJ 40 MG/0.4 ML SYR SQ SCH (08:53)
[2021-02-23] MEDS: FLUTICASONE/VILANTEROL 100/25MCG 14 PUFFS/INHALER INH SCH (08:54)
[2021-02-23] MEDS: GABAPENTIN 300 MG CAP PO SCH ×3 (08:54→21:09)
[2021-02-23] MEDS: predniSONE 20 MG TAB PO SCH (08:55)
[2021-02-23] MEDS: MONTELUKAST SODIUM 10 MG TABLET PO SCH (08:55)
[2021-02-23] MEDS: guaiFENesin 600 MG TABCR PO SCH ×2 (08:55→21:08)
[2021-02-23] MEDS: INSULIN GLARGINE SOLOSTAR 100 UNITS/ML 3 ML PEN SC SCH ×2 (08:55→20:49)
[2021-02-23] MEDS: PANTOprazole 40 MG TAB PO SCH (08:55)
[2021-02-23] MEDS: UMECLIDINIUM BROMIDE 62.5MCG/BLISTER 7 PUFFS/INHALER INH SCH (08:56)
[2021-02-23] MEDS: PROPRANOLOL HCL 10 MG TAB PO SCH ×3 (08:56→21:10)
[2021-02-23] MEDS ORDERED: REMDESIVIR 100 MG in SODIUM CHLORIDE 0.9% 230 ML IV SCH (12:00)
[2021-02-23] MEDS: SODIUM CHLORIDE 0.9% 10ML FLUSH IV SCH (13:33)
--- NOTE | 2021-02-23 16:38 | Pulmonology Progress Note ---
Date of Service February 23, 2021 Assessment & Plan (1) Respiratory failure with hypoxia: Chronicity: acute Qualified Code(s): J96.01 - Acute respiratory failure with hypoxia (2) COVID-19: Plan: Her CT chest findings are consistent with COVID-19 viral pneumonia. She is having slow improvement and continues to require supplemental oxygen. She will likely need to be discharged home on oxygen. I would recommend weaning steroids over the next 2 weeks, back to her home dose of prednisone that was used for her rheumatoid arthritis. I am going to transition her to 40 mg of prednisone starting tomorrow and then I would recommend tapering by 5 mg every 2 days. I do not think there is any role for remdesivir this far out into her illness. Remdesivir has been discontinued 02/22/2021. The patient does not have COPD based on her PFTs from 2018. I am doubtful of her asthma diagnosis as well. She denies a history of allergies. It is unclear why she is on Singulair. She would likely benefit from outpatient pulmonary rehab. Repeat CT chest imaging without contrast can be considered in the next 8 to 12 weeks. Consider repeat PFT in 12 weeks. She has a history of rheumatoid arthritis. Her Plaquenil is currently on hold. Patient discussed with the hospitalist. Pulmonary will sign off. Please call with questions. Thank you. I did pastoral counselor the patient regarding her diagnosis and treatment plan and she expressed understanding. Greater than 50% of the time was spent [id number] with the patient counseling them on their diagnosis and treatment plan. This note was dictated using voice recognition software and may include grammatical errors, extra words, word substitutions and other inaccuracies due to errors in the voice recognition software and differences in speech patterns. Admission and Anticipated Discharge Date Admission Date: February 18, 2021 Subjective Patient was sleeping at the time that I arrived. I did wake her. She denies any shortness of breath at this present time. She denies any difference in her breathing compared to yesterday. No chest pain. No fevers or chills. Appetite is stable. Review of Systems Review of Systems: All systems reviewed & are unremarkable except as noted in HPI & below Physical Exam Physical Exam: Constitutional: Elderly appearing female in no significant distress. Eyes: Pupils are equal round and reactive to light. Conjunctivae are normal. Anicteric sclera. Ears, nose, mouth and throat: Nasal cannula in place. No obvious facial deformities. Neck: Trachea is midline. Visual inspection is normal. Respiratory: Diminished bilaterally. No use of accessory muscles. Cardiovascular: Regular rate and rhythm. No murmurs. No edema. Gastrointestinal: Normal bowel sounds, soft, nontender and nondistended. No hepatosplenomegaly noted. Musculoskeletal: No cyanosis. Patient is able to move all extremities. Strength is 5 out of 5 in the upper and lower extremities. Skin: No rashes, warm dry and intact. Neurologic: Essential tremor present. Psychiatric: Alert and oriented x3 with a euthymic affect. Results & Data Results & Data ([facility]) Vital Signs (Past 12 Hours) Vital Signs Temp Pulse Pulse Resp BP Pulse Ox 02/23/21 12:08 98.2 F 82 26 H 120/77 85 L 02/23/21 08:47 99.3 F 66 20 116/65 92 02/23/21 08:00 54 L Vital signs, labs and imaging reviewed. Continues on 6 L of oxygen via nasal cannula. Saturating in the high 80s. PG Care Time/CCT Total # of Minutes Spent Total Time Spent with Patient: Total time spent is greater than 50% in coordination of care (as documented) at patient's floor/unit and/or counseling patient: Coding Level of Care Code 04203 Subseq Hosp Care Lvl 2 Diagnoses Respiratory failure with hypoxia J96.01 Chronicity: acute COVID-19 U07.1
--- NOTE | 2021-02-23 21:25 | Hospitalist Progress Note ---
Date of Service February 23, 2021 Assessment & Plan (1) Respiratory failure with hypoxia: Plan: Acute respiratory failure with hypoxia Secondary to severe COVID-19 pneumonia Completed Covid vaccine [employer] Chest x-ray is not showing any typical viral pneumonic picture CTA chest showed multifocal bilateral groundglass opacities are suggestive of viral pneumonia. CTA did not show any pulmonary embolism Pulmonary on board recommend the patient to discontinue remdesivir since no benefit due to the onset of symptoms more than 10 days IV Decadron was changed prednisone 40 mg. Will do slow taper course of prednisone by 5 every other days over 2 weeks as per pulm Continue to repeat CT chest in 8 to 12 weeks Continue oxygen supplement Continue incentive spirometry and flutter valve Continue to monitor closely History of COPD/asthma Complicated bronchitis with cough and upper nonproductive sputum Has been on doxycycline We will continue current nebulized bronchodilator Rheumatoid arthritis on chronic steroid therapy May complicate current Covid 19 infection HTN, slightly elevated We will continue her usual medication Hyperlipidemia, on statin Rx DM2 on oral medications, well-controlled as of recent hemoglobin A1c of 6.6 Ma [facility] 2020 Basal insulin, ISS BG goal 1 10-1 40, carb count coverage, update hemoglobin A1c Hypothyroidism, euthyroid as of today's TSH Essential tremors on propranolol past tobacco abuse. DVT prophylaxis per Lovenox subcu Full code Patient requests for her to be updated of of her progress. Mr. Karan Corona, contact #[phone].-Tried to call the but no reply 02/21/2021 Admission and Anticipated Discharge Date Admission Date: February 18, 2021 Subjective Patient was seen and examined for follow-up of shortness of breath due to COVID- 19 lying in bed with no acute distress Continue require 6 L oxygen supplement Denies any chest pain, palpitation, dizziness, any shortness of breath. Review of Systems Review of Systems: All systems reviewed & are unremarkable except as noted in Subjective Physical Exam Physical Exam: General- No acute distress Head- atraumatic Eyes- PERRL, EOMI, ENT- oropharynx clear Neck- supple, no JVD Lungs- +dimished BS Heart- regular rhythm; no murmur Abdomen- normal bowel sounds, soft, nontender Extremities- no calf tenderness Neuro- alert, oriented x 3; PERRL, EOMI; no facial palsy; no dysarthria Skin- warm & dry Results & Data Results & Data ([facility]) Vital Signs (Past 12 Hours) Vital Signs Temp Pulse Pulse Resp BP Pulse Ox 02/23/21 20:12 36.4 C L 51 L 20 104/64 93 02/23/21 18:03 61 02/23/21 17:05 36.6 C 64 17 124/81 91 02/23/21 12:08 36.8 C 82 26 H 120/77 85 L (1) Respiratory failure with hypoxia Chronicity: acute Qualified Code(s): J96.01 - Acute respiratory failure with hypoxia
[2021-02-24] MEDS: LEVOTHYROXINE SODIUM 25 MCG TABLET PO SCH (06:15)
[2021-02-24 08:05] LABS: Albumin Globulin Ratio 0.7 (0.9-2); Albumin Level 2.6 gm/dl (3.4-5.0); BUN Creatinine Ratio 29.2 (10-20); Bilirubin,Total 0.7 mg/dl (0.2-1); Calcium 9.2 mg/dl (8.5-10.1); Creatinine Clr Calc Pharmacy 57.1 ml/min; Est GFR (African American) 77.7 ml/min; Globulin 3.8 gm/dl (2.5-4.0); Total Protein 6.4 gm/dl (6.4-8.2)
[2021-02-24] MEDS: INSULIN ASPART 100 UNITS/ML 3 ML PEN SC SCH ×4 (09:16→22:00)
[2021-02-24] MEDS: ALPRAZolam 0.5 MG TABLET PO SCH ×3 (09:17→22:15)
[2021-02-24] MEDS: BENZONATATE 100 MG CAPSULE PO SCH ×3 (09:18→22:15)
[2021-02-24] MEDS: ASPIRIN 81 MG ECTAB PO SCH (09:19)
[2021-02-24] MEDS: ATORVASTATIN 40 MG TAB PO SCH (09:19)
[2021-02-24] MEDS: ENOXAPARIN INJ 40 MG/0.4 ML SYR SQ SCH (09:20)
[2021-02-24] MEDS: DOXYCYCLINE HYCLATE 100 MG CAP PO SCH ×2 (09:20→22:15)
[2021-02-24] MEDS: FLUTICASONE/VILANTEROL 100/25MCG 14 PUFFS/INHALER INH SCH (09:20)
[2021-02-24] MEDS: GABAPENTIN 300 MG CAP PO SCH ×3 (09:21→22:15)
[2021-02-24] MEDS: UMECLIDINIUM BROMIDE 62.5MCG/BLISTER 7 PUFFS/INHALER INH SCH (09:21)
[2021-02-24] MEDS: guaiFENesin 600 MG TABCR PO SCH ×2 (09:21→22:16)
[2021-02-24] MEDS: PANTOprazole 40 MG TAB PO SCH (09:22)
[2021-02-24] MEDS: predniSONE 20 MG TAB PO SCH (09:22)
[2021-02-24] MEDS: MONTELUKAST SODIUM 10 MG TABLET PO SCH (09:22)
[2021-02-24] MEDS: PROPRANOLOL HCL 10 MG TAB PO SCH ×3 (09:23→22:07)
[2021-02-24] MEDS: SODIUM CHLORIDE 0.9% 10ML FLUSH IV SCH (12:41)
[2021-02-24] MEDS: INSULIN GLARGINE SOLOSTAR 100 UNITS/ML 3 ML PEN SC SCH (22:03)
--- NOTE | 2021-02-24 23:50 | Hospitalist Progress Note ---
Date of Service February 24, 2021 Assessment & Plan (1) Respiratory failure with hypoxia: Plan: Acute respiratory failure with hypoxia Secondary to severe COVID-19 pneumonia Completed Covid vaccine [employer] Chest x-ray is not showing any typical viral pneumonic picture CTA chest showed multifocal bilateral groundglass opacities are suggestive of viral pneumonia. CTA did not show any pulmonary embolism Pulmonary on board recommend the patient to discontinue remdesivir since no benefit due to the onset of symptoms more than 10 days IV Decadron was changed prednisone 40 mg. Will do slow taper course of prednisone by 5 every other days over 2 weeks as per pulm Continue to repeat CT chest in 8 to 12 weeks Continue oxygen supplement Continue incentive spirometry and flutter valve Continue to monitor closely History of COPD/asthma Complicated bronchitis with cough and upper nonproductive sputum Has been on doxycycline Continue current nebulized bronchodilator Rheumatoid arthritis on chronic steroid therapy May complicate current Covid 19 infection HTN BP stable Hyperlipidemia Continue on statin Rx DM2 on oral medications Most recent HbA1C 6.7 on 02/18/21 DM well-controlled Continue lantus 5 units HS and insulin sliding scale Hypothyroidism Continue Levothyroxine Essential tremors on propranolol past tobacco abuse. DVT prophylaxis per Lovenox subcu Full code I asked pt if she wants me to call her for update, she said no that she will update him Mr. Karan Corona, contact #[phone].-Tried to call the but no reply 02/21/2021 Admission and Anticipated Discharge Date Admission Date: February 18, 2021 Subjective Patient was seen and examined for follow-up of shortness of breath due to COVID- 19 lying in bed with no acute distress Continue require 6 L oxygen supplement She said that her breathing is the same Denies any chest pain, palpitation, dizziness, any shortness of breath. Review of Systems Review of Systems: All systems reviewed & are unremarkable except as noted in Subjective Physical Exam Physical Exam: General- No acute distress Head- atraumatic Eyes- PERRL, EOMI, ENT- oropharynx clear Neck- supple, no JVD Lungs- +dimished BS Heart- regular rhythm; no murmur Abdomen- normal bowel sounds, soft, nontender Extremities- no calf tenderness Neuro- alert, oriented x 3; PERRL, EOMI; no facial palsy; no dysarthria Skin- warm & dry Results & Data Results & Data ([facility]) Vital Signs (Past 12 Hours) Vital Signs Temp Pulse Pulse Resp BP Pulse Ox 02/24/21 23:45 36.5 C 59 L 12 103/56 L 92 02/24/21 21:00 36.5 C 59 L 20 103/56 L 92 02/24/21 17:41 56 L 02/24/21 16:25 37 C 58 L 20 93 02/24/21 13:28 53 L (1) Respiratory failure with hypoxia Chronicity: acute Qualified Code(s): J96.01 - Acute respiratory failure with hypoxia
[2021-02-25] MEDS: traMADol HCL 50 MG TABLET PO PRN (06:19)
[2021-02-25] MEDS: LEVOTHYROXINE SODIUM 25 MCG TABLET PO SCH (06:20)
[2021-02-25] MEDS: ASPIRIN 81 MG ECTAB PO SCH (09:09)
[2021-02-25] MEDS: ALPRAZolam 0.5 MG TABLET PO SCH ×3 (09:09→22:25)
[2021-02-25] MEDS: ENOXAPARIN INJ 40 MG/0.4 ML SYR SQ SCH (09:10)
[2021-02-25] MEDS: ATORVASTATIN 40 MG TAB PO SCH (09:10)
[2021-02-25] MEDS: FLUTICASONE/VILANTEROL 100/25MCG 14 PUFFS/INHALER INH SCH (09:10)
[2021-02-25] MEDS: DOXYCYCLINE HYCLATE 100 MG CAP PO SCH ×2 (09:10→22:27)
[2021-02-25] MEDS: BENZONATATE 100 MG CAPSULE PO SCH ×3 (09:10→22:25)
[2021-02-25] MEDS: GABAPENTIN 300 MG CAP PO SCH ×3 (09:11→22:28)
[2021-02-25] MEDS: guaiFENesin 600 MG TABCR PO SCH ×2 (09:11→22:26)
[2021-02-25] MEDS: MONTELUKAST SODIUM 10 MG TABLET PO SCH (09:11)
[2021-02-25] MEDS: PROPRANOLOL HCL 10 MG TAB PO SCH ×3 (09:12→22:26)
[2021-02-25] MEDS: PANTOprazole 40 MG TAB PO SCH (09:12)
[2021-02-25] MEDS: predniSONE 20 MG TAB PO SCH (09:12)
[2021-02-25] MEDS: UMECLIDINIUM BROMIDE 62.5MCG/BLISTER 7 PUFFS/INHALER INH SCH (09:13)
[2021-02-25] MEDS: INSULIN ASPART 100 UNITS/ML 3 ML PEN SC SCH ×4 (09:20→22:27)
[2021-02-25] MEDS ORDERED: Nursing to Pharmacy Communication SCH (12:00)
[2021-02-25] MEDS ORDERED: SODIUM CHLORIDE 0.65% NA SOLN 45 ML (OCEAN) ONE (18:17)
--- NOTE | 2021-02-25 21:29 | Hospitalist Progress Note ---
Date of Service February 25, 2021 Assessment & Plan (1) Respiratory failure with hypoxia: Plan: Acute respiratory failure with hypoxia Secondary to severe COVID-19 pneumonia Completed Covid vaccine [employer] Chest x-ray is not showing any typical viral pneumonic picture CTA chest showed multifocal bilateral groundglass opacities are suggestive of viral pneumonia. CTA did not show any pulmonary embolism Pulmonary on board recommend the patient to discontinue remdesivir since no benefit due to the onset of symptoms more than 10 days IV Decadron was changed to prednisone. Will do slow taper course of prednisone by 5 every other days over 2 weeks as per pulm Continue to repeat CT chest in 8 to 12 weeks Continue wean oxygen supplement Continue incentive spirometry and flutter valve Continue to monitor closely History of COPD/asthma Complicated bronchitis with cough and upper nonproductive sputum Has been on doxycycline Continue current nebulized bronchodilator Rheumatoid arthritis on chronic steroid therapy May complicate current Covid 19 infection HTN BP stable Hyperlipidemia Continue on statin Rx DM2 on oral medications Most recent HbA1C 6.7 on 02/18/21 DM well-controlled Continue Lantus 5 units HS and insulin sliding scale Hypothyroidism Continue Levothyroxine Essential tremors on propranolol past tobacco abuse. DVT prophylaxis per Lovenox subcu Full code I asked pt if she wants me to call her for update, she said no that she will update him Mr. Karan Corona, contact #[phone].-Tried to call the but no reply 02/21/2021 Admission and Anticipated Discharge Date Admission Date: February 18, 2021 Subjective Patient was seen and examined for follow-up of shortness of breath due to COVID- 19 lying in bed with no acute distress Continue require 4 L oxygen supplement She said that her breathing is getting better and her cough improves Denies any chest pain, palpitation, dizziness, any shortness of breath. Review of Systems Review of Systems: All systems reviewed & are unremarkable except as noted in Subjective Physical Exam Physical Exam: General- No acute distress Head- atraumatic Eyes- PERRL, EOMI, ENT- oropharynx clear Neck- supple, no JVD Lungs- +dimished BS Heart- regular rhythm; no murmur Abdomen- normal bowel sounds, soft, nontender Extremities- no calf tenderness Neuro- alert, oriented x 3; PERRL, EOMI; no facial palsy; no dysarthria Skin- warm & dry Results & Data Results & Data ([facility]) Vital Signs (Past 12 Hours) Vital Signs Temp Pulse Pulse Resp BP Pulse Ox 02/25/21 17:29 36.7 C 63 18 105/53 L 95 02/25/21 14:20 59 L 02/25/21 11:37 37.1 C 72 18 111/61 91 02/25/21 10:20 37.1 C 80 18 122/66 92 (1) Respiratory failure with hypoxia Chronicity: acute Qualified Code(s): J96.01 - Acute respiratory failure with hypoxia
[2021-02-25] MEDS ORDERED: FUROSEMIDE 10 MG in SYRINGE 0 ML IV ONE (21:30)
[2021-02-25] MEDS: INSULIN GLARGINE SOLOSTAR 100 UNITS/ML 3 ML PEN SC SCH (23:05)
[2021-02-26] MEDS: LEVOTHYROXINE SODIUM 25 MCG TABLET PO SCH (06:29)
[2021-02-26 09:01] LABS: BUN Creatinine Ratio 37.4 (10-20); Creatinine Clr Calc Pharmacy 64.2 ml/min; Est GFR (African American) 88.9 ml/min; Est GFR (Non-African American) 76.7 ml/min
[2021-02-26] MEDS: ENOXAPARIN INJ 40 MG/0.4 ML SYR SQ SCH (09:15)
[2021-02-26] MEDS: BENZONATATE 100 MG CAPSULE PO SCH ×3 (09:15→20:36)
[2021-02-26] MEDS: ALPRAZolam 0.5 MG TABLET PO SCH ×3 (09:15→20:36)
[2021-02-26] MEDS: ATORVASTATIN 40 MG TAB PO SCH (09:15)
[2021-02-26] MEDS: FLUTICASONE/VILANTEROL 100/25MCG 14 PUFFS/INHALER INH SCH (09:15)
[2021-02-26] MEDS: ASPIRIN 81 MG ECTAB PO SCH (09:15)
[2021-02-26] MEDS: guaiFENesin 600 MG TABCR PO SCH ×2 (09:16→20:38)
[2021-02-26] MEDS: MONTELUKAST SODIUM 10 MG TABLET PO SCH (09:16)
[2021-02-26] MEDS: GABAPENTIN 300 MG CAP PO SCH ×3 (09:16→20:36)
[2021-02-26] MEDS: PROPRANOLOL HCL 10 MG TAB PO SCH ×3 (09:17→20:39)
[2021-02-26] MEDS: predniSONE 20 MG TAB PO SCH (09:17)
[2021-02-26] MEDS: PANTOprazole 40 MG TAB PO SCH (09:17)
[2021-02-26] MEDS: UMECLIDINIUM BROMIDE 62.5MCG/BLISTER 7 PUFFS/INHALER INH SCH (09:18)
[2021-02-26] MEDS: INSULIN ASPART 100 UNITS/ML 3 ML PEN SC SCH ×4 (09:33→21:00)
--- NOTE | 2021-02-26 17:28 | Hospitalist Progress Note ---
Date of Service February 26, 2021 Assessment & Plan (1) Respiratory failure with hypoxia: Plan: Acute respiratory failure with hypoxia Secondary to severe COVID-19 pneumonia Completed Covid vaccine [employer] Chest x-ray is not showing any typical viral pneumonic picture CTA chest showed multifocal bilateral groundglass opacities are suggestive of viral pneumonia. CTA did not show any pulmonary embolism Pulmonary on board recommend the patient to discontinue remdesivir since no benefit due to the onset of symptoms more than 10 days IV Decadron was changed to prednisone. Will do slow taper course of prednisone by 5 every other days over 2 weeks as per pulm Continue to repeat CT chest in 8 to 12 weeks Continue to wean oxygen supplement Continue incentive spirometry and flutter valve Continue to monitor closely Will get 2 step exercise on discharge History of COPD/asthma Complicated bronchitis with cough and upper nonproductive sputum Has been on doxycycline Continue current nebulized bronchodilator Rheumatoid arthritis on chronic steroid therapy May complicate current Covid 19 infection HTN BP stable Hyperlipidemia Continue on statin Rx DM2 on oral medications Most recent HbA1C 6.7 on 02/18/21 DM well-controlled Continue Lantus 5 units HS and insulin sliding scale Hypothyroidism Continue Levothyroxine Essential tremors on propranolol past tobacco abuse. DVT prophylaxis per Lovenox subcu Full code I asked pt if she wants me to call her for update, she said no that she will update him Mr. Karan Corona, contact #[phone].-Tried to call the but no reply 02/21/2021 Admission and Anticipated Discharge Date Admission Date: February 18, 2021 Subjective Patient was seen and examined for follow-up of shortness of breath due to COVID- 19 lying in bed with no acute distress She feels much better Continue require oxygen supplement Denies any chest pain, palpitation, dizziness, any shortness of breath. Review of Systems Review of Systems: All systems reviewed & are unremarkable except as noted in Subjective Physical Exam Physical Exam: General- No acute distress Head- atraumatic Eyes- PERRL, EOMI, ENT- oropharynx clear Neck- supple, no JVD Lungs- +dimished BS Heart- regular rhythm; no murmur Abdomen- normal bowel sounds, soft, nontender Extremities- no calf tenderness Neuro- alert, oriented x 3; PERRL, EOMI; no facial palsy; no dysarthria Skin- warm & dry Results & Data Results & Data ([place]) Vital Signs (Past 12 Hours) Vital Signs Temp Pulse Pulse Resp BP Pulse Ox 02/26/21 16:21 37.2 C 54 L 18 96/48 L 93 02/26/21 14:19 63 02/26/21 11:39 37.1 C 60 18 98/44 L 92 02/26/21 09:20 64 02/26/21 07:47 37.0 C 55 L 18 105/70 92 02/26/21 06:20 52 L (1) Respiratory failure with hypoxia Chronicity: acute Qualified Code(s): J96.01 - Acute respiratory failure with hypoxia
[2021-02-26] MEDS: INSULIN GLARGINE SOLOSTAR 100 UNITS/ML 3 ML PEN SC SCH (21:00)
[2021-02-27] MEDS: LEVOTHYROXINE SODIUM 25 MCG TABLET PO SCH (05:43)
[2021-02-27] MEDS: GABAPENTIN 300 MG CAP PO SCH ×3 (08:59→21:04)
[2021-02-27] MEDS: PROPRANOLOL HCL 10 MG TAB PO SCH ×3 (09:00→21:05)
[2021-02-27] MEDS: ASPIRIN 81 MG ECTAB PO SCH (09:00)
[2021-02-27] MEDS: BENZONATATE 100 MG CAPSULE PO SCH ×3 (09:01→21:04)
[2021-02-27] MEDS: MONTELUKAST SODIUM 10 MG TABLET PO SCH (09:01)
[2021-02-27] MEDS: ENOXAPARIN INJ 40 MG/0.4 ML SYR SQ SCH (09:01)
[2021-02-27] MEDS: ATORVASTATIN 40 MG TAB PO SCH (09:01)
[2021-02-27] MEDS: PANTOprazole 40 MG TAB PO SCH (09:02)
[2021-02-27] MEDS: predniSONE 20 MG TAB PO SCH (09:03)
[2021-02-27] MEDS: FLUTICASONE/VILANTEROL 100/25MCG 14 PUFFS/INHALER INH SCH (09:04)
[2021-02-27] MEDS: guaiFENesin 600 MG TABCR PO SCH ×2 (09:05→21:07)
[2021-02-27] MEDS: UMECLIDINIUM BROMIDE 62.5MCG/BLISTER 7 PUFFS/INHALER INH SCH (09:06)
[2021-02-27] MEDS: INSULIN ASPART 100 UNITS/ML 3 ML PEN SC SCH ×4 (09:49→20:53)
[2021-02-27] MEDS: ALPRAZolam 0.5 MG TABLET PO SCH ×3 (10:04→21:03)
[2021-02-27] MEDS: INSULIN GLARGINE SOLOSTAR 100 UNITS/ML 3 ML PEN SC SCH (20:53)
--- NOTE | 2021-02-27 23:06 | Hospitalist Progress Note ---
Date of Service February 27, 2021 Assessment & Plan (1) Respiratory failure with hypoxia: Plan: Acute respiratory failure with hypoxia Secondary to severe COVID-19 pneumonia Completed Covid vaccine [employer] Chest x-ray is not showing any typical viral pneumonic picture CTA chest showed multifocal bilateral groundglass opacities are suggestive of viral pneumonia. CTA did not show any pulmonary embolism Pulmonary on board recommend the patient to discontinue remdesivir since no benefit due to the onset of symptoms more than 10 days IV Decadron was changed to prednisone. Will do slow taper course of prednisone by 5 every other days over 2 weeks as per pulm Continue to repeat CT chest in 8 to 12 weeks Continue to wean oxygen supplement Continue incentive spirometry and flutter valve Continue to monitor closely 2 step exercise done Continue 2L NC History of COPD/asthma Complicated bronchitis with cough and upper nonproductive sputum Has been on doxycycline Continue current nebulized bronchodilator Rheumatoid arthritis on chronic steroid therapy May complicate current Covid 19 infection HTN BP stable Hyperlipidemia Continue on statin Rx DM2 on oral medications Most recent HbA1C 6.7 on 02/18/21 DM well-controlled Continue Lantus 5 units HS and insulin sliding scale Hypothyroidism Continue Levothyroxine Essential tremors on propranolol past tobacco abuse. DVT prophylaxis per Lovenox subcu Full code I asked pt if she wants me to call her for update, she said no that she will update him Mr. Karan Corona, contact #[phone].-Tried to call the but no reply 02/21/2021 Admission and Anticipated Discharge Date Admission Date: February 18, 2021 Subjective Patient was seen and examined for follow-up of shortness of breath due to COVID- 19 lying in bed with no acute distress She feels much better Continue require oxygen supplement Denies any chest pain, palpitation, dizziness, any shortness of breath. Review of Systems Review of Systems: All systems reviewed & are unremarkable except as noted in Subjective Physical Exam Physical Exam: General- No acute distress Head- atraumatic Eyes- PERRL, EOMI, ENT- oropharynx clear Neck- supple, no JVD Lungs- +dimished BS Heart- regular rhythm; no murmur Abdomen- normal bowel sounds, soft, nontender Extremities- no calf tenderness Neuro- alert, oriented x 3; PERRL, EOMI; no facial palsy; no dysarthria Skin- warm & dry Results & Data Results & Data ([place]) Vital Signs (Past 12 Hours) Vital Signs Temp Pulse Pulse Pulse Pulse Pulse Pulse 02/27/21 19:50 36.7 C 66 02/27/21 16:20 69 81 61 68 02/27/21 15:30 56 L Resp Resp Resp Resp Resp BP Pulse Ox 02/27/21 19:50 18 110/70 92 02/27/21 16:20 20 22 22 20 02/27/21 15:30 Pulse Ox Pulse Ox Pulse Ox Pulse Ox 02/27/21 19:50 02/27/21 16:20 91 89 L 92 85 L 02/27/21 15:30 (1) Respiratory failure with hypoxia Chronicity: acute Qualified Code(s): J96.01 - Acute respiratory failure with hypoxia
[2021-02-28] MEDS: LEVOTHYROXINE SODIUM 25 MCG TABLET PO SCH (05:33)
[2021-02-28] MEDS: ENOXAPARIN INJ 40 MG/0.4 ML SYR SQ SCH (08:28)
[2021-02-28] MEDS: PANTOprazole 40 MG TAB PO SCH (08:28)
[2021-02-28] MEDS: guaiFENesin 600 MG TABCR PO SCH (08:29)
[2021-02-28] MEDS: ALPRAZolam 0.5 MG TABLET PO SCH ×2 (08:29→12:33)
[2021-02-28] MEDS: MONTELUKAST SODIUM 10 MG TABLET PO SCH (08:29)
[2021-02-28] MEDS: ASPIRIN 81 MG ECTAB PO SCH (08:29)
[2021-02-28] MEDS: BENZONATATE 100 MG CAPSULE PO SCH ×2 (08:30→12:35)
[2021-02-28] MEDS: predniSONE 20 MG TAB PO SCH (08:31)
[2021-02-28] MEDS: PROPRANOLOL HCL 10 MG TAB PO SCH ×2 (08:31→12:27)
[2021-02-28] MEDS: GABAPENTIN 300 MG CAP PO SCH ×2 (08:31→12:33)
[2021-02-28] MEDS: FLUTICASONE/VILANTEROL 100/25MCG 14 PUFFS/INHALER INH SCH (08:32)
[2021-02-28] MEDS: UMECLIDINIUM BROMIDE 62.5MCG/BLISTER 7 PUFFS/INHALER INH SCH (08:32)
[2021-02-28] MEDS: ATORVASTATIN 40 MG TAB PO SCH (08:32)
[2021-02-28] MEDS: INSULIN ASPART 100 UNITS/ML 3 ML PEN SC SCH ×2 (09:31→13:20)
--- NOTE | 2021-02-28 12:20 | Hospitalist Progress Note ---
Date of Service February 28, 2021 Assessment & Plan (1) Respiratory failure with hypoxia: Plan: Acute respiratory failure with hypoxia Secondary to severe COVID-19 pneumonia Completed Covid vaccine [employer] Chest x-ray is not showing any typical viral pneumonic picture CTA chest showed multifocal bilateral groundglass opacities are suggestive of viral pneumonia. CTA did not show any pulmonary embolism Pulmonary on board recommend the patient to discontinue remdesivir since no benefit due to the onset of symptoms more than 10 days IV Decadron was changed to prednisone. Will do slow taper course of prednisone by 5 every other days over 2 weeks as per pulm Continue to repeat CT chest in 8 to 12 weeks Continue to wean oxygen supplement Continue incentive spirometry and flutter valve Continue to monitor closely 2 step exercise done that requires 2L of oxygen at rest and activities Case management is arranged for the oxygen supplement History of COPD/asthma Complicated bronchitis with cough and upper nonproductive sputum Completed the course of doxycycline Continue current nebulized bronchodilator Rheumatoid arthritis on chronic steroid therapy May complicate current Covid 19 infection Stable HTN BP stable Hyperlipidemia Continue on statin Rx DM2 on oral medications Most recent HbA1C 6.7 on 02/18/21 DM well-controlled Continue Lantus 5 units HS and insulin sliding scale Hypothyroidism Continue Levothyroxine Essential tremors on propranolol past tobacco abuse. DVT prophylaxis per Lovenox subcu Full code disposition Discharge home today I asked pt if she wants me to call her for update, she said no that she will update him Mr. Karan Corona, contact #[phone].-Tried to call the but no reply 02/21/2021 Admission and Anticipated Discharge Date Admission Date: February 18, 2021 Subjective Patient was seen and examined for follow-up of shortness of breath due to COVID- 19 lying in bed with no acute distress She feels much better She is very anxious to go home today She had 2 step done that requires 2L of oxygen at rest and activities Denies any chest pain, palpitation, dizziness, any shortness of breath. Review of Systems Review of Systems: All systems reviewed & are unremarkable except as noted in Subjective Physical Exam Physical Exam: General- No acute distress Head- atraumatic Eyes- PERRL, EOMI, ENT- oropharynx clear Neck- supple, no JVD Lungs- +dimished BS Heart- regular rhythm; no murmur Abdomen- normal bowel sounds, soft, nontender Extremities- no calf tenderness Neuro- alert, oriented x 3; PERRL, EOMI; no facial palsy; no dysarthria Skin- warm & dry Results & Data Results & Data ([facility]) Vital Signs (Past 12 Hours) Vital Signs Temp Pulse Pulse Resp BP Pulse Ox 02/28/21 08:21 36.9 C 58 L 16 115/69 90 02/28/21 07:22 45 L 02/28/21 03:27 36.4 C L 58 L 18 98/58 L 91 (1) Respiratory failure with hypoxia Chronicity: acute Qualified Code(s): J96.01 - Acute respiratory failure with hypoxia
--- NOTE | 2021-03-08 08:27 | Discharge Summary ---
Date of Service February 28, 2021 Admission HPI Per Admitting Provider History obtained from patient and records. Medical history significant for COPD/asthma, rheumatoid arthritis on chronic steroid therapy, HTN, hyperlipidemia, DM2 on oral medications, hypothyroidism, essential tremors, anxiety/mood disorder, fibromyalgia, acoustic neuroma status post surgery, past tobacco abuse. Last confinement February 2014 under Orthopedics service for elective left shoulder surgery. 12 days ago, patient noted flulike illness followed by cough productive of green sputum with worsening shortness of breath. No chest pain. No unusual wheezing at home as per patient. Sick COVID-19 contacts at home. Outpatient Covid 19 test from last week was positive. Patient completed COVID-19 vaccination. Patient brought to the ER for evaluation. O2 sats 80s on room air. Decadron and neb treatment given at the ER. Medical History as above Surgical History : Carpal tunnel surgery, shoulder surgery, acoustic neuroma removal, BTL, appendectomy, sinus surgery, tonsillectomy/adenoidectomy, TAHBSO Family History : DM, stroke, COPD, melanoma, rheumatoid arthritis Personal/Social history : Past tobacco abuse, no EtOH intake, lives with Admission Exam Per Admitting Provider GENERAL: Comfortable, head tremors (chronic), no respiratory distress SKIN: Normal color, warm HEENT: [place] palpebral conjunctivae, no ptosis, dry buccal mucosa, nasal cannula in place NECK : Supple, no tenderness CHEST : Decreased breath sounds, no tenderness HEART : Bradycardic, no obvious murmurs ABDOMEN: Some distention, nontender EXTREMITIES : No LE swelling/tenderness, no other conspicuous deformities noted NEUROLOGIC : Coherent, no facial asymmetry, chronic head tremors, no other gross focality Principal Diagnosis Acute respiratory failure with hypoxia COVID-19 pneumonia Rheumatoid arthritis on chronic steroid therapy Hypertension Hyperlipidemia Diabetes Hypothyroidism Essential tremors on propranolol Discharge Exam General- No acute distress Head- atraumatic Eyes- PERRL, EOMI, ENT- oropharynx clear Neck- supple, no JVD Lungs- +dimished BS Heart- regular rhythm; no murmur Abdomen- normal bowel sounds, soft, nontender Extremities- no calf tenderness Neuro- alert, oriented x 3; PERRL, EOMI; no facial palsy; no dysarthria Skin- warm & dry Discharge Data Allergies Allergy/AdvReac Type Severity Reaction Status Date / Time amoxicillin Allergy Unknown Verified 12/20/20 14:14 acetaminophen AdvReac Unknown "I AVOID Verified 12/20/20 14:14 THIS BECAUSE OF MY LIVER COUNTS" clarithromycin [From Biaxin] AdvReac Unknown Verified 12/20/20 14:14 Consultations 02/18/21 19:20 ED Decision to Admit Stat 02/22/21 04:53 Consult Pulmonology Routine Ordered Studies 02/20/21 23:05 CT angio chest dissec wo/w con Urgent XR chest 1V portable INDICATION: MN ^low o2. TECHNIQUE: Single frontal radiograph of the chest was obtained. Comparison: Comparison is made to chest one view 02/18/2021 FINDINGS: No lines and tubes are seen. The cardiomediastinal silhouette is normal. Redemonstration of atelectasis or scarring in the right upper lobe and left lower lung. There are faint patchy airspace opacities which are slightly more pr ominent than in the prior exam. No evidence of pleural effusion or pneumothorax. Left reverse shoulder arthroplasty is unchanged. IMPRESSION: 1. Interval mild worsening of multifocal airspace opacities compatible with history of viral pneumonia. 2. Additional findings are unchanged. ACT 112: Negative or not required by law. Electronically signed by: William Steen M.D. 02/22/2021 8:36 AM Dictated: 02/22/21832Transcribed: 02/22/21832 CT angio chest dissec wo/w con HISTORY: 75 years-old Female cp going to the back acute chest and back pain without reported trauma COMPARISON: Chest radiograph 02/18/2021, CT abdomen and pelvis 01/24/2018 TECHNIQUE: CTA of the chest was obtained both with and without the use of 110 mL Optiray 320. 3-D coronal and sagittal MIPS were obtained from the axial data set and were submitted for review. All measurements were obtained according to NASCET criteria. A dose lowering technique was used consistent with the principals of SHONNA. FINDINGS: CTA: Mild cardiomegaly. No pericardial effusion. Moderate coronary artery calcifications. The noncontrast scan demonstrates no intramural or mediastinal hematoma. Moderate atherosclerosis of the thoracic aorta without aneurysm or dissection. There is patency of the imaged great vessels. The opacified pulmonary artery is unremarkable. Respiratory motion artifact limits the study. CT CHEST: Unremarkable thyroid. Mild right hilar adenopathy lymph nodes measure up to 10 mm, likely reactive. No pneumothorax or pleural effusion. Multifocal bilateral subpleural predominant groundglass opacities are noted within a multilobar distribution. 4 mm solid nodule of the subpleural medial segment right middle lobe. The central airways are patent. No acute process of the imaged upper abdomen. Unremarkable soft tissues. Levoscoliosis of the midthoracic spine. Degenerative changes of the right shoulder and spine. Left shoulder total joint arthroplasty. IMPRESSION: 1. Unremarkable CTA of the chest. No thoracic aortic aneurysm or dissection. 2. Multifocal bilateral groundglass opacities are suggestive of viral pneumonia. 3. Mild right hilar adenopathy is likely reactive. 4. Cardiomegaly with moderate coronary artery calcifications. ACT 112: Negative or not required by law. The above report was generated using voice recognition software. It may contain grammatical, syntax or spelling errors. Electronically signed by: Michele Ruiz M.D. 02/21/2021 8:37 AM Dictated: 02/21/21828Transcribed: 02/21/21828 XR chest 1V portable INDICATION: MN ^sob, cough . TECHNIQUE: Single frontal radiograph of the chest was obtained. Comparison: Comparison is made to chest 2 views 02/08/2014 FINDINGS: No lines and tubes are seen. The cardiomediastinal silhouette is normal. Lungs are underinflated. Focal atelectasis is seen in the left lung base and right upper lobe. No evidence of pleural effusion or pneumothorax. Patient is status post right reverse shoulder arthroplasty. IMPRESSION: Lungs are underinflated with foci of atelectasis. No evidence of airspace disease. ACT 112: Negative or not required by law. Electronically signed by: William Steen M.D. 02/18/2021 4:33 PM Dictated: 02/18/21 1632Transcribed: 02/18/21 1632 Hospital Course (1) Respiratory failure with hypoxia: Acute respiratory failure with hypoxia Secondary to severe COVID-19 pneumonia Completed Covid vaccine [place] Chest x-ray is not showing any typical viral pneumonic picture CTA chest showed multifocal bilateral groundglass opacities are suggestive of viral pneumonia. CTA did not show any pulmonary embolism Pulmonary on board recommend the patient to discontinue remdesivir since no benefit due to the onset of symptoms more than 10 days IV Decadron was changed to prednisone. Will do slow taper course of prednisone by 5 every other days over 2 weeks as per pulm Continue to repeat CT chest in 8 to 12 weeks Continue to wean oxygen supplement Continue incentive spirometry and flutter valve Continue to monitor closely 2 step exercise done that requires 2L of oxygen at rest and activities Case management is arranged for the oxygen supplement History of COPD/asthma Complicated bronchitis with cough and upper nonproductive sputum Completed the course of doxycycline Continue current nebulized bronchodilator Rheumatoid arthritis on chronic steroid therapy May complicate current Covid 19 infection Stable HTN BP stable Hyperlipidemia Continue on statin Rx DM2 on oral medications Most recent HbA1C 6.7 on 02/18/21 DM well-controlled Continue Lantus 5 units HS and insulin sliding scale Hypothyroidism Continue Levothyroxine Essential tremors on propranolol past tobacco abuse. DVT prophylaxis per Lovenox subcu Full code disposition Discharge home today I asked pt if she wants me to call her for update, she said no that she will update him Mr. Karan Corona, contact #[phone].-Tried to call the but no reply 02/21/2021 Total Time Total Time Spent Total Time Spent (In Minutes): 35 minutes Discharge Plan Discharge Items Patient Disposition: Home - Self-Care Reason For Visit: RESP FAILURE, COVID Discharge Diagnosis: Acute respiratory failure with hypoxia COVID-19 pneumonia Rheumatoid arthritis on chronic steroid therapy Hypertension Hyperlipidemia Diabetes Hypothyroidism Essential tremors on propranolol Activity: Resume your previous activity Non-emergency contact: Primary Care Provider and Physician'S Assistant Call non-emergency contact if: you have any medication questions Follow-up/Referrals: Darian Thomas MD [Primary Care Provider] - (03/03/2021 11:00 AM Provider Darian Tohmas MD Department [facility] [address] PLEASE NOTE THAT THIS IS A TELEHEALTH APPOINTMENT. PLEASE FOLLOW THE INSTRUCTIONS PROVIDED IN YOUR EMAIL. IF YOU HAVE ANY QUESTIONS REGARDING THIS APPOINTMENT, PLEASE CALL .) Diet: Carb Consistent or DM2 Addtl Attending Provider Instructions: Folllow up with your primary care provider 03/03/2021 11:00 AM [facility] PLEASE NOTE THAT THIS IS A TELEHEALTH APPOINTMENT. PLEASE FOLLOW THE INSTRUCTIONS PROVIDED IN YOUR EMAIL. IF YOU HAVE ANY QUESTIONS REGARDING THIS APPOINTMENT, PLEASE CALL . Continue oxygen supplement with 2 liter nasal canulla at rest and with exertion You will need a repeat CT chest in 8 to 12 weeks to monitor the right hilar adenopathy lymph nodes (your provider will arrange for the CT scan) You will need to get a lung function test done outpatient Continue prednisone slow taper by 5mg every 2 days, then continue 5mg daily Please consider outpatient pulmonary rehab. ( your provider will arrange for the referral ) Continue to wear your mask and practice social distance Home Isolation COVID-19 Instructions The following information about Home Isolation is from the CDC Website: https://www.cdc.gov/coronavirus/2019-ncov/hcp/vaplfpsv-asgdxzt-baawdc.html Stay home except to get medical care People who are mildly ill with COVID-19 are able to isolate at home during their illness. You should restrict activities outside your home, except for getting medical care. Do not go to work, school, or public areas. Avoid using public transportation, ride-sharing, or taxis. Separate yourself from other people and animals in your home People: As much as possible, you should stay in a specific room and away from other people in your home. Also, you should use a separate bathroom, if available. Animals: You should restrict contact with pets and other animals while you are sick with COVID-19, just like you would around other people. Although there have not been reports of pets or other animals becoming sick with COVID-19, it is still recommended that people sick with COVID-19 limit contact with animals until more information is known about the virus. When possible, have another member of your household care for your animals while you are sick. If you are sick with COVID-19, avoid contact with your pet, including petting, snuggling, being kissed or licked, and sharing food. If you must care for your pet or be around animals while you are sick, wash your hands before and after you interact with pets and wear a face mask. Call ahead before visiting your doctor If you have a medical appointment, call the healthcare provider and tell them that you have or may have COVID-19. This will help the healthcare providers office take steps to keep other people from getting infected or exposed. Wear a face mask You should wear a face mask when you are around other people (e.g., sharing a room or vehicle) or pets and before you enter a healthcare providers office. If you are not able to wear a face mask (for example, because it causes trouble breathing), then people who live with you should not stay in the same room with you, or they should wear a face mask if they enter your room. Cover your coughs and sneezes Cover your mouth and nose with a tissue when you cough or sneeze. Throw used tissues in a lined trash can. Immediately wash your hands with soap and water for at least 20 seconds or, if soap and water are not available, clean your hands with an alcohol-based hand diesel service apprentice that contains at least 60% alcohol. Clean your hands often Wash your hands often with soap and water for at least 20 seconds, especially after blowing your nose, coughing, or sneezing; going to the bathroom; and before eating or preparing food. If soap and water are not readily available, use an alcohol-based hand diesel service apprentice with at least 60% alcohol, covering all surfaces of your hands and rubbing them together until they feel dry. Soap and water are the best option if hands are visibly dirty. Avoid touching yo ur eyes, nose, and mouth with unwashed hands. Avoid sharing personal household items You should not share dishes, drinking glasses, cups, eating utensils, towels, or bedding with other people or pets in your home. After using these items, they should be washed thoroughly with soap and water. Clean all high-touch surfaces everyday High touch surfaces include counters, tabletops, doorknobs, bathroom fixtures, toilets, phones, keyboards, tablets, and bedside tables. Also, clean any surfaces that may have blood, stool, or body fluids on them. Use a household cleaning spray or wipe, according to the label instructions. Labels contain instructions for safe and effective use of the cleaning product including precautions you should take when applying the product, such as wearing gloves and making sure you have good ventilation during use of the product. Monitor your symptoms Seek prompt medical attention if your illness is worsening (e.g., difficulty breathing).Beforeseeking care, call your healthcare provider and tell them that you have, or are being evaluated for, COVID-19. Put on a face mask before you enter the facility. These steps will help the healthcare providers office to keep other people in the office or waiting room from getting infected or exposed. Ask your healthcare provider to call the local or state health department. Persons who are placed under active monitoring or facilitated self- monitoring should follow instructions provided by their local health department or occupational health professionals, as appropriate. When working with your local health department check their available hours. If you have a medical emergency and need to call 911, notify the dispatch personnel that you have, or are being evaluated for COVID-19. If possible, put on a face mask before emergency medical services arrive. Discontinuing home isolation Patients with confirmed COVID-19 should remain under home isolation precautions until the risk of secondary transmission to others is thought to be low. The decision to discontinue home isolation precautions should be made on a [id number] basis, in consultation with healthcare providers and state and local health departments. Coronavirus disease 2019 (COVID-19) is a virus that causes a respiratory illness. It is caused by a coronavirus called 2019 novel coronavirus (2019- nCoV). There are many types of coronavirus. Coronaviruses are a very common cause of bronchitis. They may sometimes cause lung infection(pneumonia). Symptoms can range from mild to severe respiratory illness. These viruses are also foundin some animals. COVID-19 was first found in people in [facility], in late 2019. In 2020, several cases of COVID-19 have been confirmed in the [place] Public health officials are working to find the source. How the virus spreads is not yet fully known. It may be spread through droplets of fluid that a person coughs or sneezes into the air. It may be spread if you touch a surface with virus on it, such as a handle or object, and then touch your mouth. What are the symptoms of COVID-19? Some people have no symptoms or mild symptoms. Symptoms may appear 2 to 14 days after contact with the virus. Symptoms can include: Fever Coughing Trouble breathing What are possible complications from COVID-19? In many cases, this virus can cause infection (pneumonia) in both lungs. In some cases, this can cause . How is COVID-19 diagnosed? Your healthcare provider will ask about your symptoms. He or she will also ask about your recent travel and contact with sick people. Testing for the virus is only done through the [facility]. If yourhealthcare provider thinks you may have COVID- 19, he or she will work with your local health department and the CDC on testing. Follow all instructions from your healthcare provider. COVID-19 is diagnosed by: Nasal and throat swab. A cotton-tipped swab is wiped inside your nose or throat. This is done to check for viruses in your nasal mucus. Sputum culture. A small sample of mucus coughed from your lungs (sputum) is collected if you have a cough. It is checked for the virus. How is COVID-19 treated? There is currently no medicine to treat the virus. Treatment is done to help your body while it fights the virus. This is known as supportive care. Supportive care may include: Pain medicine. These include acetaminophen and ibuprofen. They are used to hel p ease pain and reduce fever. Bed rest. This helps your body fight the illness. For severe illness, you may need to stay in the hospital. Care during severe illness may include: IV (intravenous) fluids.These are given through a vein to help keep your body hydrated. Oxygen. Supplemental oxygen or ventilation with a breathing machine (ventilator) may be given. This is done to keep enough oxygen in your body. Are you at risk for COVID-19? If youve been to a place where people have been sick with this virus, you are at risk for infection. You are at risk if you: Recently traveled to an affected area Had contact with a sick person who recently traveled to this area Had contact with a person who was diagnosed with COVID-19 How can COVID-19 be prevented? There is no vaccine yet. The best prevention is to not have contact with the virus. The CDC advises that people should not travel to areas where there are COVID-19 outbreaks right now for any reason that is not urgent. To help prevent spreading the infection, wash your hands often, or use an alcohol-basedhand diesel service apprentice. If you are in an area with COVID-19: Wash your hands often. Or use an alcohol-based hand diesel service apprentice often. Only touch your eyes, nose, or mouth with clean hands. Dont have contact with people who are sick. Follow local instructions about being in public. For example, you may be told to not use public transport for a period of time. Stay away from markets that have live or animals. Wash your hands after touching any animals. Don't touch animals that may be sick. Dont share eating or drinking tools with sick people. Dont kiss someone who is sick. Clean surfaces often with disinfectant. If you were in an area with COVID-19 in the last 14 days: Call your healthcare provider. He or she can talk with local health staff to see what action may be needed. Follow all instructions from your provider. Take your temperature every morning and evening for at least 14 days. This is to check for fever. Keep a record of the readings. Keep watch for symptoms of the virus. Tell your provider right away if you have symptoms. If you were in an area with COVID-19 and have a fever or other symptoms: Dont panic. Keep in mind that other illnesses can cause similar symptoms. Stay away from work, school, and public places. Limit physical contact with family members. Don't kiss anyone or share eating or drinking utensils. Clean surfaces you touch with disinfectant. This is to help prevent the virus from spreading. Call your healthcare provider. Explain that you have been exposed to COVID-19 and have symptoms. Do this before going to any hospital. Wait for instructions. Keep in mind that healthcare staff may wear protective equipment such as masks, gowns, gloves, and eye protection. You may be put in a separate room. This is to prevent the possible virus from spreading. Tell the healthcare staff about recent travel. This includes local travel on public transport. Staff may need to find other people you have been in contact with. Follow all instructions the healthcare staff give you. If you have been diagnosed with COVID-19 Follow all instructions from your healthcare provider. Dont leave your home, except to get medical care. Call your healthcare providers office before going. They can prepare and give you instructions. This will help prevent the virus from spreading. Dont go to work, school, or public areas. Dont use public transport or taxis. Stay away from other people in your home. Have them wear face masks around you. Dont share household items or food. Wear a face mask if you can. This includes at home or in a medical facility. Cover your face with a tissue when you cough or sneeze. Throw the tissue away. Wash your hands. Wash your hands often. Caregivers should: Follow all instructions from healthcare staff. Wear a face mask and protective clothing as advised. Wash hands often. Keep track of the sick persons symptoms. Clean surfaces, fabrics, and laundry thoroughly. Keep other people away from the sick person. When to call your healthcare provider Call your healthcare provider: If youve recently traveled and have symptoms If you have been diagnosed with COVID-19 and your symptoms are worse To learn more To find out more about COVID-19, visit the CDC website at www.cdc.gov/coronavirus/2019-ncov/index.html. 4638-[address] [employer] [place] [address], [place], [place] [address]. All rights reserved. This information is not intended as a substitute for professional medical care. Always follow your healthcare professional's instructions. This information has been adapted from [employer] Pending Studies at Discharge: No Stand-Alone Forms: My [facility] [employer], Smoking Cessation Medications and DC Order Prescriptions: New prednisone 10 mg tablet 10 mg PO UD Qty: 20 RF: 0 guaifenesin 200 mg tablet 200 mg PO Q8H PRN (Reason: cough) Qty: 15 RF: 0 Continued budesonide-formoterol 160-4.5 mcg/actuation HFA aerosol inhaler 2 puff inhalation BID Qty: 3 RF: 1 Incruse Ellipta 62.5 mcg/actuation blister with device 1 inh inhalation DAILY Qty: 3 RF: 1 dexlansoprazole 60 mg capsule,biphase delayed releas 60 mg PO DAILY RF: 0 paroxetine HCl 40 mg tablet 40 mg PO DAILY RF: 0 gabapentin 300 mg capsule 300 mg PO TID RF: 0 propranolol 10 mg tablet 10 mg PO TID RF: 0 alprazolam 0.5 mg tablet 0.5 mg PO TID RF: 0 atorvastatin 40 mg tablet 40 mg PO DAILY Qty: 30 RF: 0 aspirin 81 mg tablet,delayed release (DR/EC) 81 mg PO DAILY RF: 0 metformin 500 mg tablet 500 mg PO DAILY Qty: 180 RF: 0 prednisone 5 mg tablet 5 mg PO DAILY RF: 0 montelukast 10 mg tablet 10 mg PO DAILY Qty: 90 RF: 0 hydroxychloroquine 200 mg tablet 400 mg PO DAILY RF: 0 levothyroxine 25 mcg capsule 25 mcg PO DAILY RF: 0 ipratropium-albuterol 0.5 mg-3 mg(2.5 mg base)/3 mL solution for nebulization 3 ml inhalation Q4H PRN (Reason: shortness of breath or wheezing) Qty: 180 RF: 3 budesonide 0.25 mg/2 mL suspension for nebulization 2 ml inhalation BID Qty: 60 RF: 5 Discharge Orders: Discharge Order (Routine); Ordered 02/28/21 Ordered By: Nu Kong/Other Patient Handouts: A1C, Managing Type 2 Diabetes Admission Data Admit Date/Time: 02/18/21 20:36 Attending Provider: Nu De Souza Admit Provider: Mickey Young Primary Care Provider: Darian Thomas Other Providers: Mickey Young ; Esteban Charles ; Ambrose Granger ; Jean-Paul Traylor ; Andrew Zaidi ; Yris Mancia ; Karla Willett Other Interventions: Discharge Summary Assessment (RN) Last Done: 02/28/21 17:20
== END 2021-02-28 18:00 | disposition home or self-care (01) | DRG 177 ==
LOC: ED 14:26 → 2N 19:45 → SUATTDRO 20:36 → 2N 20:36